=== PATIENT | male | born 1970 | race Caucasian/White ===

== ENCOUNTER 2019-01-28 20:53 | Inpatient (IN) ==
[2019-01-28 21:24] LABS: Bilirubin,Urine Negative (Negative); Blood,Urine Negative (Negative); Clarity,Urine Clear (Clear); Color,Urine Yellow (Yellow); Glucose,Urine (UA) Normal (Normal); Ketones,Urine Negative (Negative); Leukocyte Esterase,Urine Negative (Negative); Nitrite,Urine Negative (Negative); Protein,Urine Negative (Neg-Trace); Specific Gravity,Urine 1.021 (1.010-1.025); Urobilinogen,Urine Normal (Normal)
[2019-01-28] MEDS ORDERED: 0.9 % Sodium Chloride 1,000 ML IVC ONE (22:22)
--- NOTE | 2019-01-28 22:27 | Emergency Department Note ---
Disposition Clinical Impression: Cellulitis of perineum, Tachycardia Abscess of skin or subcutaneous tissue Qualifiers: Site of cutaneous abscess: trunk Site of cutaneous abscess of trunk: perineum Qualified Code(s): L02.215 - Cutaneous abscess of perineum Fever Qualifiers: Fever type: unspecified Qualified Code(s): R50.9 - Fever, unspecified Disposition: Admitted As Inpatient Condition: Fair Referrals: Madelaine Cohen CNP [Primary Care Provider] - Forms: ED Satisfaction Letter Time of Disposition: 01:54 General Adult HPI - General Chief complaint: ED Skin/Abscess/Foreign Body Stated complaint: Abscess Time Seen by Provider: 01/28/19 21:55 Source: patient Mode of arrival: private vehicle Limitations: no limitations Nursing Notes Reviewed: Yes Vital Signs Reviewed: Yes - History of Present Illness HPI Narrative: Patient is a 48-year-old male with no past medical history the takes no medications who reports that he noticed a lump near his anus on Monday which she believed was a hemorrhoid, he went to a medical facility where they prescri bed Keflex and Bactrim. Patient states that over the last several days that his pain has gotten worse, the swelling has increased, he has developed fevers, and he feels that his infection may be getting worse. Patient states that in the past he has had a history of MRSA. Patient states that when this happened previously he had to be placed on a much higher dose of antibiotics. Patient denies diabetes, known injury to the area, or any trauma. Patient is tachycardic on initial exam, and feels warm to the touch although bedside oral thermometer showed a temperature of 99.1. Pain Scale: 8 - Related Data Previous Rx's Medication Instructions Recorded Sulfamethoxazole/Trimeth DS 1 each PO BID #14 tablet 01/27/19 [Bactrim DS] cephALEXin [Keflex] 500 mg PO TID #21 capsule 01/27/19 Allergies Allergy/AdvReac Type Severity Reaction Status Date / Time No Known Allergies Allergy Verified 01/28/19 20:56 Constitutional: Reports: fever, chills Eyes: Denies: eye pain ENT ED: Denies: ear pain Cardiovascular: Denies: chest pain, palpitations Respiratory: Reports: cough (chronic, smoker) Gastrointestinal: Denies: abdominal pain, nausea, vomiting, diarrhea, constipation Genitourinary: Denies: urgency, dysuria Musculoskeletal: Denies: back pain Integumentary: Reports: other (abscess/lump in groin) Neurological: Denies: headache, weakness Psychiatric: Denies: anxiety, depression Endocrine: Denies: fatigue Hematological/Lymphatic: Denies: easy bleeding Allergic/Immunologic: Denies: facial swelling Past Medical History - Past Medical History Medical history: Reports: non-contributory Surgical history: Reports: other Psychiatric history: Reports: no psych history - Social History Smoking Status: Current every day smoker Smokeless Tobacco Status: No Alcohol use: Reports: none Drug use: Reports: none Physical Exam General: A&O x 3. No acute distress. Well developed, well nourished. Head: atraumatic, normocephalic. ENT: No conjunctival injection, no scleral icterus. PERRLA. EOMI. Oropharynx non- erythematous. mucous membranes moist. Neuro: No focal deficits, no speech deficit, no facial droop, mentating well. Pulm: Lungs CTAB A/P. No wheezes, rales, ronchi. Cardio: tachycardic no m/r/g. Chest not tender to palpation. Abd: Soft, non-distended. Normoactive bowel sounds. Non-tender to palpation. No guarding. Non rigid. Extremities: Radial pulses 2+ jesus, dorsalis pedis/posterior tibialis 2+ jesus. No LE edema. No cyanosis, clubbing. Skin: warmer than normal, dry, intact. No rashes. : scrotum appears swollen, erythematous, and is very tender to touch on left side. There is a small mass running in the pereneum along the left side of the pereneum that is erythematous and tender to touch. Psych: Appropriate mood and affect. Answers questions appropriately. Cooperative with exam. - General Limitations: no limitations General appearance: alert Course Course Narrative: Concern for scrotal abscess, or extension into deeper soft tissues. Will obtain ultrasound, cbc, bmp, lactic, UA, blood cultures. 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 1cm focus of fluid. Contacted Dr. Reid with urology who agreed to come in and see the patient. Pts last meal was 1899 night. Time: 00:47 Vital Signs Temperature 99 F 03/25/19 20:56 Pulse Rate 119 01/28/19 20:56 Respiratory Rate 16 01/28/19 20:56 Blood Pressure 120/77 01/28/19 20:56 O2 Sat by Pulse Oximetry 100 01/28/19 20:56 Temperature 101.1 F H 01/29/19 00:52 Pulse Rate 112 01/29/19 00:00 Respiratory Rate 20 01/29/19 00:00 Blood Pressure 118/76 01/29/19 00:00 O2 Sat by Pulse Oximetry 98 01/29/19 00:00 Oxygen Delivery Oxygen Delivery Room Air Medical Decision Making - MDM Narrative Medical decision making narrative: CT scan was concerning for inflammation with gas in the perienum tracking into the left hemiscrotum. Pt was evaluated at bedside by Dr Reid in urology who will take the patient to the OR for an I&D. Urology was not concerned for fourneire's gangrene, but consulted surgery and will have them see the patient tomorrow at bedside. Pt was given vancomycin, zosyn, and clindamycin while in the department. He was given a tylenol when he developed of fever of 101.1. His pain was managed with fentanyl and dilaudid. He remained tachycardic while in the department but otherwise hemodynamically stable. Plan of treatment was explained to the patient and he verbalized understanding and agreement with the plan. Pt was admitted to hospitalist, Dr. Cabello, who agreed to accept the patient to his service. - Medical Records Medical records reviewed: Yes I reviewed the patient's medical records. - Lab Data Lab results reviewed: Yes I reviewed the patient's lab results. Result diagrams: 01/28/19 22:46 01/28/19 22:46 Lab Results 01/28/19 01/28/19 01/28/19 Range/Units 21:02 22:46 22:46 WBC 20.1 H (4.3-11.1) K/mcL RBC 4.25 (4.19-5.50) M/mcL Hgb 14.4 (12.9-16.9) g/dL Hct 42.9 (37.5-50.1) % MCV 100.9 H (83.0-100.0) fL MCH 33.9 H (28.0-33.3) pg MCHC 33.6 (31.6-35.5) g/dL RDW 12.3 (11.5-14.5) % Plt Count 196 (140-400) K/mcL MPV 10.2 (9.4-12.4) fL Immature Gran % 0.7 (0-4) % Seg Neutrophils % 89.6 % Lymphocytes % 5.1 % Monocytes % 4.2 % Eosinophils % 0.2 % Basophils % 0.2 % Neutrophils # 18.0 H (1.6-8.9) K/mcL Lymphocytes # 1.0 (0.6-4.6) K/mcL Monocytes # 0.8 (0.0-1.3) K/mcL Eosinophils # 0.0 (0.0-0.6) K/mcL Basophils # 0.0 (0.0-0.2) K/mcL Sodium 135 L (136-145) mEq/L Potassium 3.5 (3.5-5.1) mEq/L Chloride 104 (98-107) mEq/L Carbon Dioxide 21 L (23-29) mEq/L BUN 13 (6-20) mg/dL Creatinine 0.75 (0.70-1.30) mg/dL Est GFR ( Amer) > 60 (> 60) Est GFR (Non-Af Amer) > 60 (> 60) BUN/Creatinine Ratio 17 (6-26) Glucose 89 (70-105) mg/dL Calculated Osmolality 280 (280-300) Lactic Acid (0.5-2.2) mmol/L Calcium 9.4 (8.6-10.3) mg/dL Urine Color Yellow (Yellow) Urine Clarity Clear (Clear) Urine pH 7.0 (5.0-8.0) pH Units Ur Specific [place] 1.021 (1.010-1.025) Urine Protein Negative (Neg-Trace) mg/dL Urine Glucose (UA) Normal (Normal) mg/dL Urine Ketones Negative (Negative) mg/dL Urine Blood Negative (Negative) Urine Nitrite Negative (Negative) Urine Bilirubin Negative (Negative) Urine Urobilinogen Normal (Normal) mg/dL Ur Leukocyte Esterase Negative (Negative) Ur Culture Indicated? NO (NO) 01/28/19 Range/Units 22:46 WBC (4.3-11.1) K/mcL RBC (4.19-5.50) M/mcL Hgb (12.9-16.9) g/dL Hct (37.5-50.1) % MCV (83.0-100.0) fL MCH (28.0-33.3) pg MCHC (31.6-35.5) g/dL RDW (11.5-14.5) % Plt Count (140-400) K/mcL MPV (9.4-12.4) fL Immature Gran % (0-4) % Seg Neutrophils % % Lymphocytes % % Monocytes % % Eosinophils % % Basophils % % Neutrophils # (1.6-8.9) K/mcL Lymphocytes # (0.6-4.6) K/mcL Monocytes # (0.0-1.3) K/mcL Eosinophils # (0.0-0.6) K/mcL Basophils # (0.0-0.2) K/mcL Sodium (136-145) mEq/L Potassium (3.5-5.1) mEq/L Chloride (98-107) mEq/L Carbon Dioxide (23-29) mEq/L BUN (6-20) mg/dL Creatinine (0.70-1.30) mg/dL Est GFR ( Amer) (> 60) Est GFR (Non-Af Amer) (> 60) BUN/Creatinine Ratio (6-26) Glucose (70-105) mg/dL Calculated Osmolality (280-300) Lactic Acid 1.0 (0.5-2.2) mmol/L Calcium (8.6-10.3) mg/dL Urine Color (Yellow) Urine Clarity (Clear) Urine pH (5.0-8.0) pH Units Ur Specific [place] (1.010-1.025) Urine Protein (Neg-Trace) mg/dL Urine Glucose (UA) (Normal) mg/dL Urine Ketones (Negative) mg/dL Urine Blood (Negative) Urine Nitrite (Negative) Urine Bilirubin (Negative) Urine Urobilinogen (Normal) mg/dL Ur Leukocyte Esterase (Negative) Ur Culture Indicated? (NO) - Radiology Data Radiology results reviewed: Yes I reviewed the patient's radiology results. Scrotum Ultrasound 01/28/19 22:15 IMPRESSION: 1. Scrotal cellulitis with no evidence for abscess formation. 2. Normal flow in both testicles. 3. Left-sided epididymitis. D/ / Manav Levin MD / Manav Levin MD Interpreting Provider: Manav Levin MD Abdomen/Pelvis CT 01/29/19 00:01 IMPRESSION: Edema throughout the subcutaneous tissues the scrotum with associated increased vascularity. There is also soft tissue gas within the lower left scrotal sac extending superiorly into the left perineal subcutaneous tissues compatible with Parag gangrene. Findings were discussed with Dr. Abdulkadir Bridges at 12:45 am on 01/29/2019. D/ / Shannan Modi Cha, MD / Shannan Modi Cha, MD Interpreting Provider: Shannan Modi Cha, MD
[2019-01-28 22:56] LABS: Basophils % 0.2 %; Eosinophils % 0.2 %; Hematocrit 42.9 % (37.5-50.1); Hemoglobin 14.4 g/dL (12.9-16.9); Immature Granulocytes % 0.7 % (0-4); Lymphocytes % 5.1 %; Mean Corpuscular HGB Conc 33.6 g/dL (31.6-35.5); Mean Corpuscular Hemoglobin 33.9 pg (28.0-33.3); Mean Corpuscular Volume 100.9 fL (83.0-100.0); Mean Platelet Volume 10.2 fL (9.4-12.4); Monocytes # 0.8 K/mcL (0.0-1.3); Monocytes % 4.2 %; Platelet Count 196 K/mcL (140-400); Red Blood Count 4.25 M/mcL (4.19-5.50); Red Cell Distribution Width 12.3 % (11.5-14.5); Segmented Neutrophils % 89.6 %
[2019-01-28 23:19] LABS: BUN/Creatinine Ratio 17 (6-26); Blood Urea Nitrogen 13 mg/dL (6-20); Calcium 9.4 mg/dL (8.6-10.3); Carbon Dioxide 21 mEq/L (23-29); Chloride 104 mEq/L (98-107); Glucose 89 mg/dL (70-105); Osmolality,Calculated 280 (280-300); Potassium 3.5 mEq/L (3.5-5.1); Sodium 135 mEq/L (136-145); eGFR For Non-African Americans > 60 (> 60)
[2019-01-28] MEDS ORDERED: Isovue-370 500 ML BOTTLE IVP ONE (23:42)
[2019-01-28] MEDS ORDERED: Piperacillin/Tazobactam 3.375 GM in 0.9 % Sodium Chloride Mini Bag 100 ML IVPB ONE (23:49)
[2019-01-28] MEDS ORDERED: Clindamycin 600 MG/50 ML 600 MG/50 ML IV.SOLN IVPB STA (23:49)
[2019-01-29] MEDS ORDERED: *HR* FentaNYL (PF) 100 MCG/2 ML VIAL IVP ONE (00:03)
[2019-01-29] MEDS ORDERED: *HR* HYDROmorphone (PF) 1 MG/ML SYRINGE IVP ONE (01:26)
[2019-01-29] MEDS ORDERED: *HR* Midazolam HCl 2 MG/2 ML VIAL ONE (01:32)
[2019-01-29] MEDS ORDERED: *HR* FentaNYL (PF) 100 MCG/2 ML VIAL ONE (01:32)
[2019-01-29] MEDS ORDERED: *HR* Propofol 200 MG/20 ML VIAL IVP ONE ×2 (01:32→02:39)
[2019-01-29] MEDS ORDERED: *HR* Succinylcholine 200 MG/10 ML VIAL IVP ONE (01:36)
[2019-01-29] MEDS ORDERED: Lidocaine -MPF 2% 2 ML VIAL ONE (01:36)
[2019-01-29] MEDS ORDERED: Ondansetron 4 MG/2 ML VIAL ONE (01:38)
[2019-01-29] MEDS ORDERED: Dexamethasone 4 MG/ML VIAL ONE (01:38)
[2019-01-29] MEDS ORDERED: Lidocaine 1% 20 ML MDV ONE (01:51)
--- NOTE | 2019-01-29 01:53 | Anesthesia Evaluation PreOp ---
Date of Encounter: 01/29/19 Time of Encounter: 02:10 - Past History Planned Operation: I&D scrotal abscess, poss debridement Cardiac History: Denies any Significant Hx Pulmonary History: Smoker [employer] History: Denies Any Significant HX Other Medical History: GERD Anesthesia History: No Prior Anesthetic Complications, Past Anesthesia (Right shoulder) Alcohol Use: none Drug use: none Medications and Allergies Sulfamethoxazole/Trimeth DS [Bactrim DS] 1 each PO BID #14 tablet 01/27/19 [Rx] cephALEXin [Keflex] 500 mg PO TID #21 capsule 01/27/19 [Rx] Allergy/AdvReac Type Severity Reaction Status Date / Time No Known Allergies Allergy Verified 01/28/19 20:56 - Meds/Allergy Pre-op Review Medications Reviewed: Yes Allergies Reviewed: Yes Beta Blockers on Current Med List: No Anesthesia Results - Labs 01/28/19 22:46 01/28/19 22:46 Anesthesia Exam Last Vital Signs Temp 101.1 F H 01/29/19 00:52 Pulse 112 01/29/19 00:00 Resp 20 01/29/19 00:00 BP 118/76 01/29/19 00:00 Pulse Ox 98 01/29/19 00:00 Weight: 89 kg NPO (# of Hours): since 01-28-19 at 19:00 - HEENT Pupil (Motor): Pupils equal, EOMI Mallampati: II Teeth: Normal Oral Opening: Greater than 3 - [employer] LOC: Oriented - Cardiac Rhythm: Regular Murmur: None - Pulmonary Breath Sounds: bilateral Clear Respiratory Effort: Symmetrical Anesthesia Assess/Plan ASA Score: 2, E Level of consciousness: Cooperative Anesthetic Plan: General, Precautions (RSI) Monitoring Plan: Standard Monitors Recovery Plan: PACU
--- NOTE | 2019-01-29 01:54 | Urology - Consult Note ---
Date of Encounter: 01/29/19 Time of Encounter: 01:52 - Assessment and Plan (1) Abscess, perineum Current Visit: Yes Status: Acute Assessment and plan: 48-year-old man with a history of a perineal abscess was seen in consultation. On exam I do not see any evidence of gangrene to the skin. I recommend proceeding with an incision and drainage of scrotal versus perineal abscess and possible debridement of Parag's gangrene if notable. We reviewed the risks of the surgery which include but are not limited to bleeding, infection, injury or structures, need for further procedures, incomplete treatment, and the risk of anesthesia. He is willing to proceed. He has received IV antibiotics already. The surgery team has been notified. I did contact general surgery over the phone. The general surgeon was not physically in the hospital at this time. Given that he has a fever and elevated white count I will proceed with surgery. (2) Cellulitis of perineum Current Visit: No Status: Acute Urology CN:HPI Consult date: 01/29/19 Reason for consult Urology: Other (scrotal/perineum abscess) History of present illness: 48-year-old man presents with concern for perineal swelling and erythema over the last 3-4 days. On January 26 he went to a local urgent care. He noted approximately golf ball size swelling in his perineum extending to his anterior gluteal cleft. He was given antibiotics orally. The pain worsened. He presented to the emergency room today with more pain and drainage from the area of swelling. He had a CT scan which showed concern for an abscess in the perineum versus scrotum with subcutaneous gas. He developed a fever as well. Urology was counseled for further evaluation. He denies any history of diabetes mellitus. He is not on any immunosuppressive medication. He reports that he is otherwise healthy. Past Med Surg Social Fam HX - Past Medical History Medical history: no medical history, non-contributory Psychiatric history: no psych history - Past Surgical History Surgical History: other Additional surgical history: lt knee scope - Social History Smoking Status: Current every day smoker Smokeless Tobacco Status: No Alcohol use: none Drug use: none Additional social history: He works at [employer]. - Family History Brother Hx Family Genitourinary Disorders: Yes (Kidney stones) Medications and Allergies Sulfamethoxazole/Trimeth DS [Bactrim DS] 1 each PO BID #14 tablet 01/27/19 [Rx] cephALEXin [Keflex] 500 mg PO TID #21 capsule 01/27/19 [Rx] Allergy/AdvReac Type Severity Reaction Status Date / Time No Known Allergies Allergy Verified 01/28/19 20:56 Review of Systems - Constitutional fever(s), no chills - EENT Nose, mouth and throat: no dizziness - Cardiovascular no chest pain - Respiratory no dyspnea - Gastrointestinal no nausea, no vomiting - Genitourinary genital pain, no flank pain, no hematuria - Musculoskeletal no back pain - Integumentary no erythema, no rash - Neurological no weakness - Psychiatric no suicidal ideation - Hematologic/Lymphatic no easy bleeding - Allergic/Immunologic no wheezing Exam Initial Vital Signs Temp Pulse Resp BP Pulse Ox 99 F 119 16 120/77 100 01/28/19 20:56 01/28/19 20:56 01/28/19 20:56 01/28/19 20:56 01/28/19 20:56 - General physical appearance Present: well developed, well nourished, no distress - Eyes Absent: icteric - ENT Present: normal nares - Neck Present: trachea midline - Respiratory Present: normal respiratory effort - Cardiovascular Cardiovascular exam IM: RRR - Abdomen Abdomen: Present: soft, non tender - Genitourinary normal penis with no external lesions, other (Scrotum is erythematous and edematous. Penis is circumcised and is normal. Testicles are normal.) - Rectum Rectum: Present: other (In the perineum just anterior to the gluteal cleft I can see evidence of an open abscess draining purulent fluid. There is no evidence of gangrene to the scrotum or perineum.) - Integumentary Present: other (Abscess noted) - Neurologic Present: normal coordination - Musculoskeletal Present: other (grossly normal) Urology Results - Labs 01/28/19 22:46 01/28/19 22:46 Abnormal lab results WBC 20.1 K/mcL (4.3-11.1) H 01/28/19 22:46 MCV 100.9 fL (83.0-100.0) H 01/28/19 22:46 MCH 33.9 pg (28.0-33.3) H 01/28/19 22:46 Neutrophils # 18.0 K/mcL (1.6-8.9) H 01/28/19 22:46 Sodium 135 mEq/L (136-145) L 01/28/19 22:46 Carbon Dioxide 21 mEq/L (23-29) L 01/28/19 22:46 Diabetes panel 01/28/19 Range/Units 22:46 Sodium 135 L (136-145) mEq/L Potassium 3.5 (3.5-5.1) mEq/L Chloride 104 (98-107) mEq/L Carbon Dioxide 21 L (23-29) mEq/L BUN 13 (6-20) mg/dL Creatinine 0.75 (0.70-1.30) mg/dL Glucose 89 (70-105) mg/dL Calcium 9.4 (8.6-10.3) mg/dL Calcium panel 01/28/19 Range/Units 22:46 Calcium 9.4 (8.6-10.3) mg/dL Pituitary panel 01/28/19 Range/Units 22:46 Sodium 135 L (136-145) mEq/L Potassium 3.5 (3.5-5.1) mEq/L Chloride 104 (98-107) mEq/L Carbon Dioxide 21 L (23-29) mEq/L BUN 13 (6-20) mg/dL Creatinine 0.75 (0.70-1.30) mg/dL Glucose 89 (70-105) mg/dL Calcium 9.4 (8.6-10.3) mg/dL Adrenal panel 01/28/19 Range/Units 22:46 Sodium 135 L (136-145) mEq/L Potassium 3.5 (3.5-5.1) mEq/L Chloride 104 (98-107) mEq/L Carbon Dioxide 21 L (23-29) mEq/L BUN 13 (6-20) mg/dL Creatinine 0.75 (0.70-1.30) mg/dL Glucose 89 (70-105) mg/dL Calcium 9.4 (8.6-10.3) mg/dL All other labs normal. - Imaging CT scan - abdomen: report reviewed, image reviewed CT scan - pelvis: report reviewed, image reviewed Consult Discharge Plan - Plan Referrals: Madelaine Cohen, [employer] [Primary Care Provider] -
[2019-01-29] MEDS ORDERED: *HR* Promethazine 25 MG/ML VIAL IVP PRN (01:55)
[2019-01-29] MEDS ORDERED: *HR* OxyCODONE Immed Rel 5 MG TABLET PO PRN (01:55)
[2019-01-29] MEDS ORDERED: Albuterol 2.5 MG/3 ML NEBULIZER ONE (02:05)
[2019-01-29] MEDS ORDERED: Albuterol 2.5 MG/3 ML NEBULIZER IH ONE (02:08)
--- NOTE | 2019-01-29 02:26 | Emergency Department Note ---
Disposition Clinical Impression: Abscess of skin or subcutaneous tissue, Cellulitis of perineum, Fever, Tachycardia Disposition: Admitted As Inpatient Condition: Fair Referrals: Madelaine Cohen CNP [Primary Care Provider] - Forms: ED Satisfaction Letter General Adult HPI - General Chief complaint: ED Skin/Abscess/Foreign Body Stated complaint: Abscess Time Seen by Provider: 01/28/19 21:55 Source: patient Mode of arrival: private vehicle Limitations: no limitations Nursing Notes Reviewed: Yes Vital Signs Reviewed: Yes - History of Present Illness Pain Scale: 6 - Related Data Previous Rx's Medication Instructions Recorded Sulfamethoxazole/Trimeth DS 1 each PO BID #14 tablet 01/27/19 [Bactrim DS] cephALEXin [Keflex] 500 mg PO TID #21 capsule 01/27/19 Allergies Allergy/AdvReac Type Severity Reaction Status Date / Time No Known Allergies Allergy Verified 01/28/19 20:56 Constitutional: Reports: fever, chills Eyes: Denies: eye pain ENT ED: Denies: ear pain Cardiovascular: Denies: chest pain, palpitations Respiratory: Reports: cough (chronic, smoker) Gastrointestinal: Denies: abdominal pain, nausea, vomiting, diarrhea, constipation Genitourinary: Denies: urgency, dysuria Musculoskeletal: Denies: back pain Integumentary: Reports: other (abscess/lump in groin) Neurological: Denies: headache, weakness Psychiatric: Denies: anxiety, depression Endocrine: Denies: fatigue Hematological/Lymphatic: Denies: easy bleeding Allergic/Immunologic: Denies: facial swelling Past Medical History - Past Medical History Medical history: Reports: no medical history, non-contributory Surgical history: Reports: other Psychiatric history: Reports: no psych history - Social History Smoking Status: Current every day smoker Smokeless Tobacco Status: No Alcohol use: Reports: none Drug use: Reports: none Physical Exam - General Limitations: no limitations General appearance: alert Course Vital Signs Temperature 99 F 01/28/19 20:56 Pulse Rate 119 01/28/19 20:56 Respiratory Rate 16 01/28/19 20:56 Blood Pressure 120/77 01/28/19 20:56 O2 Sat by Pulse Oximetry 100 01/28/19 20:56 Temperature 99.3 F 01/29/19 01:56 Pulse Rate 115 01/29/19 01:56 Respiratory Rate 20 01/29/19 01:56 Blood Pressure 112/71 01/29/19 01:56 O2 Sat by Pulse Oximetry 98 01/29/19 01:56 Oxygen Delivery Oxygen Delivery Room Air Medical Decision Making - Medical Records Medical records reviewed: Yes I reviewed the patient's medical records. - Lab Data Lab results reviewed: Yes I reviewed the patient's lab results. Result diagrams: 01/28/19 22:46 01/28/19 22:46 Lab Results 01/28/19 01/28/19 01/28/19 Range/Units 21:02 22:46 22:46 WBC 20.1 H (4.3-11.1) K/mcL RBC 4.25 (4.19-5.50) M/mcL Hgb 14.4 (12.9-16.9) g/dL Hct 42.9 (37.5-50.1) % MCV 100.9 H (83.0-100.0) fL MCH 33.9 H (28.0-33.3) pg MCHC 33.6 (31.6-35.5) g/dL RDW 12.3 (11.5-14.5) % Plt Count 196 (140-400) K/mcL MPV 10.2 (9.4-12.4) fL Immature Gran % 0.7 (0-4) % Seg Neutrophils % 89.6 % Lymphocytes % 5.1 % Monocytes % 4.2 % Eosinophils % 0.2 % Basophils % 0.2 % Neutrophils # 18.0 H (1.6-8.9) K/mcL Lymphocytes # 1.0 (0.6-4.6) K/mcL Monocytes # 0.8 (0.0-1.3) K/mcL Eosinophils # 0.0 (0.0-0.6) K/mcL Basophils # 0.0 (0.0-0.2) K/mcL Sodium 135 L (136-145) mEq/L Potassium 3.5 (3.5-5.1) mEq/L Chloride 104 (98-107) mEq/L Carbon Dioxide 21 L (23-29) mEq/L BUN 13 (6-20) mg/dL Creatinine 0.75 (0.70-1.30) mg/dL Est GFR ( Amer) > 60 (> 60) Est GFR (Non-Af Amer) > 60 (> 60) BUN/Creatinine Ratio 17 (6-26) Glucose 89 (70-105) mg/dL Calculated Osmolality 280 (280-300) Lactic Acid (0.5-2.2) mmol/L Calcium 9.4 (8.6-10.3) mg/dL Urine Color Yellow (Yellow) Urine Clarity Clear (Clear) Urine pH 7.0 (5.0-8.0) pH Units Ur Specific [place] 1.021 (1.010-1.025) Urine Protein Negative (Neg-Trace) mg/dL Urine Glucose (UA) Normal (Normal) mg/dL Urine Ketones Negative (Negative) mg/dL Urine Blood Negative (Negative) Urine Nitrite Negative (Negative) Urine Bilirubin Negative (Negative) Urine Urobilinogen Normal (Normal) mg/dL Ur Leukocyte Esterase Negative (Negative) Ur Culture Indicated? NO (NO) 01/28/19 Range/Units 22:46 WBC (4.3-11.1) K/mcL RBC (4.19-5.50) M/mcL Hgb (12.9-16.9) g/dL Hct (37.5-50.1) % MCV (83.0-100.0) fL MCH (28.0-33.3) pg MCHC (31.6-35.5) g/dL RDW (11.5-14.5) % Plt Count (140-400) K/mcL MPV (9.4-12.4) fL Immature Gran % (0-4) % Seg Neutrophils % % Lymphocytes % % Monocytes % % Eosinophils % % Basophils % % Neutrophils # (1.6-8.9) K/mcL Lymphocytes # (0.6-4.6) K/mcL Monocytes # (0.0-1.3) K/mcL Eosinophils # (0.0-0.6) K/mcL Basophils # (0.0-0.2) K/mcL Sodium (136-145) mEq/L Potassium (3.5-5.1) mEq/L Chloride (98-107) mEq/L Carbon Dioxide (23-29) mEq/L BUN (6-20) mg/dL Creatinine (0.70-1.30) mg/dL Est GFR ( Amer) (> 60) Est GFR (Non-Af Amer) (> 60) BUN/Creatinine Ratio (6-26) Glucose (70-105) mg/dL Calculated Osmolality (280-300) Lactic Acid 1.0 (0.5-2.2) mmol/L Calcium (8.6-10.3) mg/dL Urine Color (Yellow) Urine Clarity (Clear) Urine pH (5.0-8.0) pH Units Ur Specific [place] (1.010-1.025) Urine Protein (Neg-Trace) mg/dL Urine Glucose (UA) (Normal) mg/dL Urine Ketones (Negative) mg/dL Urine Blood (Negative) Urine Nitrite (Negative) Urine Bilirubin (Negative) Urine Urobilinogen (Normal) mg/dL Ur Leukocyte Esterase (Negative) Ur Culture Indicated? (NO) - Radiology Data Radiology results reviewed: Yes I reviewed the patient's radiology results. Scrotum Ultrasound 01/28/19 22:15 IMPRESSION: 1. Scrotal cellulitis with no evidence for abscess formation. 2. Normal flow in both testicles. 3. Left-sided epididymitis. D/ / Manav Levin MD / Manav Levin MD Interpreting Provider: Manav Levin MD Abdomen/Pelvis CT 01/29/19 00:01 IMPRESSION: Edema throughout the subcutaneous tissues the scrotum with associated increased vascularity. There is also soft tissue gas within the lower left scrotal sac extending superiorly into the left perineal subcutaneous tissues compatible with Parag gangrene. Findings were discussed with Dr. Abdulkadir Bridges at 12:45 am on 01/29/2019. D/ / Shannan Modi Cha, MD / Shannan Modi Cha, MD Interpreting Provider: Shannan Modi Cha, MD Critical Care Time Critical Care Time: Yes Total Critical Care Time: 45 Attestation: Critical care performed: Time is exclusive of separately billable procedures. Time includes: direct patient care, patient reassessment, coordination of patient care, interpretation of data (laboratory data, radiology data, and respiratory data), review of patient's medical records, medical consultation and documentation of patient ca re. Procedures included in critical care time: Procedures excluded from critical care time: Attestation Statement - Attestation Attestation: I, Javier Roy MD, personally evaluated this patient and discussed their management with the resident physician. I reviewed the resident's note and agree with the documented findings, medical decision making, and plan of care. 48-year-old male presents to the emergency department with a complaint of pain and swelling to the left perineal and scrotal area which started 2 days prior to arrival. He was seen at urgent care and started on Bactrim and Keflex ye . He has had 3 doses. He presents to the emergency department tonight because of increased pain and swelling. Some chills and subjective fever. No generalized abdominal pain. No dysuria. On examination patient is a well-developed well-nourished male in no acute distress. He is alert and oriented 3. There is no cyanosis or diaphoresis. Breath sounds are clear and equal bilaterally. Heart regular with a mild tachycardia. Abdomen soft and nontender with normal bowel sounds. Angy tourinary exam there is diffuse edema and erythema of the entire scrotum with edema and induration of the left side of the perineum between the anus and the scrotum. Labs reviewed. Blood cultures obtained. Scrotal ultrasound showed cellulitis with no evidence of abscess. CT was obtained and showed gas in the lower portion of the scrotum extending down into the perineum consistent with Parag 's gangrene. Patient started on IV vancomycin, Zosyn, and clindamycin. The urologist, Dr. Reid, was consulted and saw the patient in the emergency department. He does not feel that it is actually Parag's gangrene and feels more that it is just a perineal or perianal abscess. He did take the patient to the operating room for incision and drainage. The hospitalist, Dr. Cabello, was consulted and accepted admission of the patient.
[2019-01-29] MEDS ORDERED: *HR* PHENYLEPHRINE 1,000 MCG/10 ML SYRINGE IVP ONE (02:34)
[2019-01-29] MEDS ORDERED: Ketorolac 30 MG/ML VIAL ONE (02:45)
[2019-01-29] MEDS ORDERED: Naloxone 0.4 MG/ML INJ IVP PRN ×2 (03:06→05:00)
[2019-01-29] MEDS ORDERED: Ondansetron 4 MG/2 ML VIAL IVP PRN ×2 (03:06→05:00)
[2019-01-29] MEDS ORDERED: Acetaminophen 325 MG TABLET PO PRN ×2 (03:06→05:00)
[2019-01-29] MEDS ORDERED: OXYCODONE Oral CONC 10 MG/0.5 ML ORAL.SYG SL PRN (03:06)
[2019-01-29] MEDS ORDERED: *HR* OxyCODONE/APAP 5/325 TABLET PO PRN ×2 (03:06→05:00)
[2019-01-29] MEDS ORDERED: Ketorolac 30 MG/ML VIAL IVP PRN ×3 (03:06→14:11)
--- NOTE | 2019-01-29 03:06 | Operative Note ---
Date of procedure: 01/29/19 Pre-op diagnosis: Scrotal abscess Post-op diagnosis: same Procedure: Incision and drainage of scrotal abscess Implants: Packing Complications: None Anesthesia: GETA Surgeon: Bienvenido Reid Was there an assistant fitness manager present: No Estimated blood loss (cc): 5 Specimen: wound cultures Condition: stable Disposition: PACU Procedure in Detail: Indications: Mr. Tafoya is a 48-year-old gentleman who has a history of scrotal cellulitis. He developed purulent drainage from his perineum today. A CT scan showed gas underneath the skin. There is purulent fluid emanating out of the perineum to the anal verge. He elected to undergo a incision and drainage of scrotal abscess with possible resection of Parag's gangrene. He is aware of the risks of the procedure including but not limited to bleeding, infection, injury to other structures, loss of testicle, need for further procedures, and the risk of anesthesia. He is willing to proceed. Procedure in detail: After informed consent was obtained Mr. Tafoya was brought back to the operating room and placed in the supine position. A timeout was performed. General anesthesia was then administered and an endotracheal tube was placed. He was then placed in the lithotomy position. His genitalia were prepped and draped in the usual sterile fashion. A 2 cm incision was made over top of the sinus draining purulent fluid just anterior and to the left of the anal verge. Purulent fluid emanated out. A sample of this was sent for culture. My finger was placed superior into the wound which tracked into the left hemiscrotal wall. More purulent fluid drained out of the wound. I irrigated the wound. I made a new incision over top of the left hemiscrotum over top of my finger. This was opened using the hemostat. I then placed a quarter inch packing strip into the wound from the scrotum. The wound of the anus was packed as well. I felt that it would be difficult for the patient to do wound packing near his anus and that would be easier to pack from the scrotum on down. Local anesthetic was infiltrated in the wound. Dry sterile dressings were applied. We placed mesh panties over top the patient. The patient was then awakened from general anesthesia and brought to the recovery room in good condition. All sponge, needle, and instrument counts were correct.
[2019-01-29] MEDS ORDERED: 0.9 % Sodium Chloride 1,000 ML IVC SCH (03:15)
--- NOTE | 2019-01-29 03:46 | Anesthesia Evaluation Post Op ---
Date of Encounter: 01/29/19 Time of Encounter: 03:45 - Vital Signs Vital Signs: Last Vital Signs Temp 99.3 F 01/29/19 03:32 Pulse 108 01/29/19 03:32 Resp 14 01/29/19 03:32 BP 97/59 01/29/19 03:32 Pulse Ox 95 01/29/19 03:32 - Lungs Lungs: Clear Ascult./Percussion - Airway Airway: Non-obstructed - Cardiovascular Regular Rate - Mental Status Mental Status: Alert & Oriented, Answers Appropriately - Pain Pain Scale: 1 - Nausea Vomiting Nausea Vomiting: Not Present - Hydration Hydration: Ice chips - Discharge PostOp Status: Transfer Patient to floor
--- NOTE | 2019-01-29 04:38 | Internal Med History&Physical ---
<Jaylene Browne Abdulkadir - Last Filed: 01/29/19 06:06> Date of Encounter: 01/29/19 Time of Encounter: 05:03 Internal Medicine - H&P: HPI Chief complaint: lump near anus Admitted From: Home History of present illness: Mr. Tafoya is a 48 year old male with reported past medical history of MRSA and no other medical conditions who presented to the [facility] ER from urgent care with suspected perineal abscess. Patient stated that he first noticed a small lump near his anus on Monday and thought that it was just his hemorrhoid. He treated it with preparation H, however it increased in size. The lump progressively enlarged and became more tender. He also experienced fever and chills, which led to him going to urgent care on Monday. He was prescribed Bactrim and Keflex, which he states he started taking that day. Monday morning his pain was much worse and he has had some drainage from the initial site. The lump had become significantly enlarged and had tracked up the left side of his perineum and was now compressing on his scrotum. He continued to have fever and chills and stated that it was red and very tender. He decided to go back to urgent care at which point he was sent to the ER for further evaluation. He admits to previous MRSA infection on the left inner thigh many years ago. He admits to using clippers for grooming and denies shaving. He denies any nausea, vomiting, diarrhea, or urinary symptoms. ER course: Febrile 100.1, tachycardic 119, WBC 20.1 Lactic acid 1.0 Vanc, Zosyn and clindamycin [address] f[address] abdomen/pelvismildly enlarged inguinal lymph nodes, diffuse edema within the subcutaneous tissue of the scrotum extending into the left perineum, gas within the soft tissues of the left scrotum extending superiorly into the left perineum compatible with for near gangrene Urology spoke with general surgery prior to taking patient to the OR. Due to fever and leukocytosis, urology decided to proceed with I&D Past Med Surg Social Fam HX - Past Medical History Medical history: no medical history, non-contributory Psychiatric history: no psych history - Past Surgical History Surgical History: other Additional surgical history: lt knee scope - Social History Smoking Status: Current every day smoker Smokeless Tobacco Status: No Alcohol use: none Drug use: none - Family History Brother Hx Family Genitourinary Disorders: Yes (Kidney stones) Internal Medicine - H&P: Meds Sulfamethoxazole/Trimeth DS [Bactrim DS] 1 each PO BID #14 tablet 01/27/19 [Rx] cephALEXin [Keflex] 500 mg PO TID #21 capsule 01/27/19 [Rx] Allergy/AdvReac Type Severity Reaction Status Date / Time No Known Allergies Allergy Verified 01/28/19 20:56 All Systems PM: A 10-system review of systems was performed and is negative for pertinent findings except as documented above in the HPI. - Constitutional Constitutional: chills, fever(s) - Cardiovascular Cardiovascular ROS IM: no chest pain, no diaphoresis, no dyspnea, no edema, no lightheadedness, no palpitations, no syncope - Respiratory Respiratory: no cough, no dyspnea - Gastrointestinal Gastrointestinal: no abdominal pain, no diarrhea, no nausea, no vomiting - Genitourinary Genitourinary ROS male: scrotal swelling, no difficulty urinating Additional comments: Large erythematous perineal lump - Musculoskeletal Musculoskeletal ROS IM: no numbness, no tingling - Integumentary Integumentary IM: erythema (Perineal), no rash - Neurological Neurological ROS: no confusion, no dizziness, no headache(s) - Psychiatric Psychiatric: no behavioral changes, no confusion - Constitutional Vitals: Temp Pulse Resp BP Pulse Ox 99.3 F 108 14 97/59 95 01/29/19 03:32 01/29/19 03:32 01/29/19 03:32 01/29/19 03:32 01/29/19 03:32 General appearance: Present: A&O X 3, no acute distress, answers questions appropriately Exam: see above - Head Head exam: Present: atraumatic, normocephalic - Eye Eye exam: Present: EOMI, conjuntiva pink, sclera anicteric - ENT ENT exam: Present: mucous membranes moist - Neck Neck exam general surgery: Present: trachea midline - Respiratory Respiratory exam: Present: CTAB. Absent: accessory muscle use, rales, rhonchi, wheezes - Cardiovascular Cardiovascular exam: Present: gallop, RRR, +S1, +S2. Absent: diastolic murmur, rubs, systolic murmur - GI/Abdominal GI/Abdominal exam: Present: normal bowel sounds, soft, no peritoneal signs. Absent: distended, tenderness - Additional comments: Perineal dressings intact - Extremities Exam Extremities exam: Present: warm, radial pulses palpable and symmetrical. Absent: pedal edema - Neurological Exam Neurological exam: Present: oriented X3, no focal deficits. Absent: pronater drift, facial droop, speech deficit - Psychiatric Psychiatric exam: Present: normal affect, normal mood - Skin Skin exam: Present: dry, intact, warm. Absent: diaphoretic Internal Med - H&P Results - Labs CBC & Chem 7: 01/28/19 22:46 01/28/19 22:46 Labs: Short CBC 01/28/19 Range/Units 22:46 WBC 20.1 H (4.3-11.1) K/mcL Hgb 14.4 (12.9-16.9) g/dL Hct 42.9 (37.5-50.1) % Plt Count 196 (140-400) K/mcL Neutrophils # 18.0 H (1.6-8.9) K/mcL BMP 01/28/19 22:46 Sodium 135 L Potassium 3.5 Chloride 104 Carbon Dioxide 21 L BUN 13 Creatinine 0.75 Glucose 89 Calcium 9.4 Urine 01/28/19 Range/Units 21:02 Urine Color Yellow (Yellow) Urine Clarity Clear (Clear) Urine pH 7.0 (5.0-8.0) pH Units Ur Specific [place] 1.021 (1.010-1.025) Urine Protein Negative (Neg-Trace) mg/dL Urine Glucose (UA) Normal (Normal) mg/dL - Impressions ITS Impressions Scrotum Ultrasound 01/28/19 22:15 IMPRESSION: 1. Scrotal cellulitis with no evidence for abscess formation. 2. Normal flow in both testicles. 3. Left-sided epididymitis. D/ / Manav Levin MD / Manav Levin MD Interpreting Provider: Manav Levin MD Abdomen/Pelvis CT 01/29/19 00:01 IMPRESSION: Edema throughout the subcutaneous tissues the scrotum with associated increased vascularity. There is also soft tissue gas within the lower left scrotal sac extending superiorly into the left perineal subcutaneous tissues compatible with Paarg gangrene. Findings were discussed with Dr. Abdulkadir Bridges at 12:45 am on 01/29/2019. D/ / Shannan Modi Cha, MD / Shannan Modi Cha, MD Interpreting Provider: Shannan Modi Cha, MD - Assessment and Plan (1) Sepsis Current Visit: Yes Status: Acute Assessment and plan: Febrile, Tachy, Leukocytosis, and perineal abscess on presentation Likely secondary to perineal abscess Lactic Acid 1.0 Received Vanc, Zosyn, and Clinda in ER s/p 1L IVF bolus UA negative Cultures pending s/p abscess I&D, Urology managing Continue Vanc and Zosyn, De-escalate abx based on cultures and sensitivities Continue IVFs Qualifiers: Sepsis type: sepsis due to unspecified organism Qualified Code(s): A41.9 - Sepsis, unspecified organism (2) Abscess, perineum Current Visit: Yes Status: Acute Assessment and plan: Patient admits to using clippers for grooming, has had previous MRSA infection of the inner thigh s/p I&D by Urology CT abd/pelvismildly enlarged inguinal lymph nodes, diffuse edema within the subcutaneous tissue of the scrotum extending into the left perineum, gas within the soft tissues of the left scrotum extending superiorly into the left perineum Wound cultures pending Incision managment per Urology, case was discussed with general surgery by Urology prior to I&D. Continue Vanc and Zosyn, de-escalated based on cultures and sensitivities Continue IVFs Continue pain management and supportive care (3) Cellulitis of perineum Current Visit: Yes Status: Acute Assessment and plan: Likely secondary to perineal abscess Plan as above (4) DVT prophylaxis Current Visit: Yes Status: Acute Assessment and plan: EPCDs d/t bleeding risk s/p I&D - Time Spent With Patient Total time spent is greater than 50% in coordination of care (as documented) at patient's floor/unit and/or counseling patient: 25 - 35 minutes <Renan Cabello - Last Filed: 01/29/19 06:46> Date of Encounter: 01/29/19 Internal Medicine - H&P: HPI History of present illness: Mr. Tafoya is a 48 year old male All Systems PM: A 10-system review of systems was performed and is negative for pertinent findings except as documented above in the HPI. - Constitutional Vitals: Temp Pulse Resp BP Pulse Ox 99.3 F 108 14 97/59 95 01/29/19 03:32 01/29/19 03:32 01/29/19 03:32 01/29/19 03:32 01/29/19 03:32 Internal Med - H&P Results - Labs CBC & Chem 7: 01/28/19 22:46 01/28/19 22:46 Labs: Short CBC 01/28/19 Range/Units 22:46 WBC 20.1 H (4.3-11.1) K/mcL Hgb 14.4 (12.9-16.9) g/dL Hct 42.9 (37.5-50.1) % Plt Count 196 (140-400) K/mcL Neutrophils # 18.0 H (1.6-8.9) K/mcL BMP 01/28/19 22:46 Sodium 135 L Potassium 3.5 Chloride 104 Carbon Dioxide 21 L BUN 13 Creatinine 0.75 Glucose 89 Calcium 9.4 Urine 01/28/19 Range/Units 21:02 Urine Color Yellow (Yellow) Urine Clarity Clear (Clear) Urine pH 7.0 (5.0-8.0) pH Units Ur Specific [place] 1.021 (1.010-1.025) Urine Protein Negative (Neg-Trace) mg/dL Urine Glucose (UA) Normal (Normal) mg/dL - Impressions ITS Impressions Scrotum Ultrasound 01/28/19 22:15 IMPRESSION: 1. Scrotal cellulitis with no evidence for abscess formation. 2. Normal flow in both testicles. 3. Left-sided epididymitis. D/ / Manav Levin MD / Manav Levin MD Interpreting Provider: Manav Levin MD Abdomen/Pelvis CT 01/29/19 00:01 IMPRESSION: Edema throughout the subcutaneous tissues the scrotum with associated increased vascularity. There is also soft tissue gas within the lower left scrotal sac extending superiorly into the left perineal subcutaneous tissues compatible with Parag gangrene. Findings were discussed with Dr. Abdulkadir Bridges at 12:45 am on 01/29/2019. D/ / Shannan Modi Cha, MD / Shannan Modi Cha, MD Interpreting Provider: Shannan Modi Cha, MD - Time Spent With Patient Total time spent is greater than 50% in coordination of care (as documented) at patient's floor/unit and/or counseling patient: - Attending Attestation I saw and evaluated the patient. I reviewed the residents note, performed my own physical examination and agree with findings and plan as documented in the residents note. Patient seen and examined on 01/29/19. Patient seen on medical floor after surgery. States that he is feeling better. Urology continuing to follow. We will continue antibiotics, monitor for worsening signs of infection. Discussed medical history with the patient, he states that he had no previous medical problems, does not take medications on a regular basis. He did have a heart cath 9 years ago, but no stents. His family medical history includes mainly heart attacks in his father and brother, both of which required bypass surgeries. His father also had diabetes. His mother had a heart attack as well. His sister is currently being treated for lymphoma and also had lung cancer.
[2019-01-29] MEDS: 0.9 % Sodium Chloride 1,000 ML IVC SCH ×2 (06:38→13:29)
[2019-01-29 06:52] LABS: Basophils % 0.2 %; Hematocrit 36.9 % (37.5-50.1); Immature Granulocytes % 4.5 % (0-4); Lymphocytes # 0.6 K/mcL (0.6-4.6); Lymphocytes % 2.6 %; Mean Corpuscular HGB Conc 34.1 g/dL (31.6-35.5); Mean Corpuscular Hemoglobin 34.1 pg (28.0-33.3); Mean Corpuscular Volume 99.7 fL (83.0-100.0); Mean Platelet Volume 10.6 fL (9.4-12.4); Monocytes # 1.3 K/mcL (0.0-1.3); Monocytes % 5.2 %; Neutrophils # 21.6 K/mcL (1.6-8.9); Platelet Count 179 K/mcL (140-400); Red Cell Distribution Width 12.5 % (11.5-14.5); Segmented Neutrophils % 87.5 %
[2019-01-29 06:57] LABS: Basophils # 0.1 K/mcL (0.0-0.2); Hemoglobin 12.6 g/dL (12.9-16.9)
[2019-01-29 07:12] LABS: BUN/Creatinine Ratio 15 (6-26); Blood Urea Nitrogen 11 mg/dL (6-20); Calcium 8.5 mg/dL (8.6-10.3); Carbon Dioxide 22 mEq/L (23-29); Chloride 106 mEq/L (98-107); Glucose 104 mg/dL (70-105); Osmolality,Calculated 278 (280-300); Sodium 134 mEq/L (136-145); eGFR For Non-African Americans > 60 (> 60)
[2019-01-29 07:18] LABS: Platelet Estimate Normal (Normal)
[2019-01-29] MEDS ORDERED: Piperacillin/Tazobactam 3.375 GM in 0.9 % Sodium Chloride Mini Bag 100 ML IVPB SCH (08:00)
--- NOTE | 2019-01-29 08:19 | Urology Progress Note ---
Date of Encounter: 01/29/19 Time of Encounter: 07:50 - Assessment and Plan (1) Scrotal abscess Current Visit: Yes Status: Acute Assessment and plan: Patient is a 48-year-old male who presents 5 hours status post incision and drai nage of scrotal abscess. Vital signs are currently stable and afebrile. White blood cell count is markedly elevated at 24.7. Wound and blood cultures are pending. Patient is receiving IV vancomycin and Zosyn. We will continue with daily wound care and packing changes, continue IV antibiotics, and await final culture and sensitivity reports. Progress Note Narrative: POD #0. Patient seen and examined sitting upright in bed in no apparent distress. Family member at bedside. Patient is tolerating normal diet without nausea or vomiting. Patient is urinating without difficulty. Patient states pain is well-controlled, and he denies any fever or chills. Objective Initial Vital Signs Temp Pulse Resp BP Pulse Ox 99 F 119 16 120/77 100 01/28/19 20:56 01/28/19 20:56 01/28/19 20:56 01/28/19 20:56 01/28/19 20:56 - General physical appearance Present: no distress, no pain - Respiratory Present: normal expansion, normal respiratory effort - Abdomen Present: soft, non tender - Genitourinary Present: normal penis with no external lesions scrotal wound: bilateral (scrotum diffusely edematous, erythematous; abscess site with packing strip visible) - Integumentary Present: no rash, no abnormal pigmentation - Musculoskeletal Present: normal posture - Psychiatric Present: oriented to time, oriented to person, oriented to place, speech is normal, memory intact - Labs 01/29/19 05:52 01/29/19 05:52 Diabetes panel 01/28/19 01/29/19 Range/Units 22:46 05:52 Sodium 135 L 134 L (136-145) mEq/L Potassium 3.5 4.0 (3.5-5.1) mEq/L Chloride 104 106 (98-107) mEq/L Carbon Dioxide 21 L 22 L (23-29) mEq/L BUN 13 11 (6-20) mg/dL Creatinine 0.75 0.75 (0.70-1.30) mg/dL Glucose 89 104 (70-105) mg/dL Calcium 9.4 8.5 L (8.6-10.3) mg/dL Calcium panel 01/28/19 01/29/19 Range/Units 22:46 05:52 Calcium 9.4 8.5 L (8.6-10.3) mg/dL Pituitary panel 01/28/19 01/29/19 Range/Units 22:46 05:52 Sodium 135 L 134 L (136-145) mEq/L Potassium 3.5 4.0 (3.5-5.1) mEq/L Chloride 104 106 (98-107) mEq/L Carbon Dioxide 21 L 22 L (23-29) mEq/L BUN 13 11 (6-20) mg/dL Creatinine 0.75 0.75 (0.70-1.30) mg/dL Glucose 89 104 (70-105) mg/dL Calcium 9.4 8.5 L (8.6-10.3) mg/dL Adrenal panel 01/28/19 01/29/19 Range/Units 22:46 05:52 Sodium 135 L 134 L (136-145) mEq/L Potassium 3.5 4.0 (3.5-5.1) mEq/L Chloride 104 106 (98-107) mEq/L Carbon Dioxide 21 L 22 L (23-29) mEq/L BUN 13 11 (6-20) mg/dL Creatinine 0.75 0.75 (0.70-1.30) mg/dL Glucose 89 104 (70-105) mg/dL Calcium 9.4 8.5 L (8.6-10.3) mg/dL Consult Discharge Plan - Plan Referrals: Madelaine Cohen, MALINI [Primary Care Provider] -
[2019-01-29] MEDS: Piperacillin/Tazobactam 3.375 GM in 0.9 % Sodium Chloride Mini Bag 100 ML IVPB SCH ×2 (08:55→17:48)
--- NOTE | 2019-01-29 11:49 | Internal Med Progress Note ---
<Tanya Pearson - Last Filed: 01/29/19 17:32> Hospitalist Progress Note - Encounter Date of Encounter: 01/29/19 Time of Encounter: 08:30 - Subjective Interval History: Mr. Tafoya is seen at bedside this morning. He was sitting comfortably at bedside. Had just returned from surgical intervention of incision and drainage of scrotal abscess. He denied any fever, chills, nausea, emesis, shortness of breath or chest pain. - Exam Vitals: Temp Pulse Resp BP Pulse Ox 97.7 F 84 18 96/63 97 01/29/19 11:17 01/29/19 11:17 01/29/19 11:17 01/29/19 11:17 01/29/19 11:17 Exam: Gen: Vitals noted. No acute distress. Appears comfortable. Eyes: anicteric sclerae, moist conjunctivae Cardiac: RRR, no murmur, +S1/S2. No JVD noted. Pulmonary: CTA bilaterally, no wheezes, rales or rhonchi, equal chest expansion Abdomen: soft, nontender, no guarding. No masses or hepatosplenomegaly MSK: ROM intact, no joint swelling noted Extremities: no edema, nontender calf Skin: Normal temperature, turgor; no rash, ulcers or subcutaneous nodules Neuro: moves all extremities, no focal deficits. Psych: Appropriate mood and behavior. A&Ox3 - Assessment and Plan (1) Sepsis Current Visit: Yes Status: Acute Assessment and Plan: Sepsis secondary to perianal abscess. Developed fever and chills 3 days ago was started on Bactrim and Keflex by [facility] outpatient but continued to have pain and drainage from the anal verge. At presentation was noted to be febrile, tachycardic and had white blood cell count of 20.1, heart rate was 114 and temperature was 101.1 Lactic acid was within normal limits at 1.0 This morning repeat white blood cell count is 24.7. His tachycardia and fever has resolved after undergoing incision and drainage. He is comfortable in room air. -Continue IV antibiotics, Zosyn and vancomycin day 1 -Urology is consulted for further recommendations -Continue to monitor vitals -CBC in the morning (2) Abscess, perineum Current Visit: Yes Status: Acute Assessment and Plan: Mr. Tafoya presented to the ED complaining of pain around his anus in the scrotum. He reported there was a small lump around his anus on 01/25/19. The lump enlarged and progressed to involvement of his scrotum. On 01/27/19 he went to the urgent care complaining of fever and chills and was prescribed Bactrim and Keflex. His pain worsened and he started noticing drainage around the perineal region. CT of the pelvis reported soft tissue gas within the left scrotal sac extended perianal subcutaneous tissue. -Urology was consulted and he underwent incision and drainage around the left anal verge and left hemiscrotal wall. -The wounds are packed with dry sterile dressings applied. -Continue wound care per urology's recommendation -Continue vancomycin and Zosyn, ay 1 -Blood cultures pending -Wound cultures pending -Continue pain management -We will continue to trend CBC, CBC in the morning (3) Tobacco abuse Current Visit: Yes Status: Acute Assessment and Plan: Smokes 1 pack per day. Nicotine patch ordered. (4) GERD (gastroesophageal reflux disease) Current Visit: Yes Status: Chronic Assessment and Plan: At home he reports he tolerates Tums and would like to continue Tums as needed. Tums when necessary ordered. DVT Prophylaxis: EPCD due to risk of bleeding status post incision and drainage - Time Spent with Patient Total time spent is greater than 50% in coordination of care (as documented) at patient's floor/unit and/or counseling patient: Internal Medicine: Result - Labs CBC & Chem 7: 01/29/19 05:52 01/29/19 05:52 Labs: Short CBC 01/28/19 01/29/19 Range/Units 22:46 05:52 WBC 20.1 H 24.7 H (4.3-11.1) K/mcL Hgb 14.4 12.6 L D (12.9-16.9) g/dL Hct 42.9 36.9 L (37.5-50.1) % Plt Count 196 179 (140-400) K/mcL Neutrophils # 18.0 H 21.6 H (1.6-8.9) K/mcL BMP 01/28/19 01/29/19 22:46 05:52 Sodium 135 L 134 L Potassium 3.5 4.0 Chloride 104 106 Carbon Dioxide 21 L 22 L BUN 13 11 Creatinine 0.75 0.75 Glucose 89 104 Calcium 9.4 8.5 L Urine 01/28/19 Range/Units 21:02 Urine Color Yellow (Yellow) Urine Clarity Clear (Clear) Urine pH 7.0 (5.0-8.0) pH Units Ur Specific Wayne 1.021 (1.010-1.025) Urine Protein Negative (Neg-Trace) mg/dL Urine Glucose (UA) Normal (Normal) mg/dL - Impressions Impressions Scrotum Ultrasound 01/28/19 22:15 IMPRESSION: 1. Scrotal cellulitis with no evidence for abscess formation. 2. Normal flow in both testicles. 3. Left-sided epididymitis. D/ / Manav Levin MD / Manav Levin MD Interpreting Provider: Manav Levin MD Abdomen/Pelvis CT 01/29/19 00:01 IMPRESSION: Edema throughout the subcutaneous tissues the scrotum with associated increased vascularity. There is also soft tissue gas within the lower left scrotal sac extending superiorly into the left perineal subcutaneous tissues compatible with Parag gangrene. Findings were discussed with Dr. Abdulkadir Bridges at 12:45 am on 01/29/2019. D/ / Shannan Modi Cha, MD / Shannan Modi Cha, MD Interpreting Provider: Shannan Modi Cha, MD Consult Discharge Plan - Plan Referrals: Madelaine Cohen CNP [Primary Care Provider] - <Nilson Lucero - Last Filed: 01/29/19 18:45> Hospitalist Progress Note - Encounter Date of Encounter: 01/29/19 - Exam Vitals: Temp Pulse Resp BP Pulse Ox 98.1 F 89 18 100/63 99 01/29/19 14:13 01/29/19 14:13 01/29/19 14:13 01/29/19 14:13 01/29/19 14:13 - Assessment and Plan (1) Abscess, perineum Current Visit: Yes Status: Acute (2) Sepsis Current Visit: Yes Status: Acute (3) Tobacco abuse Current Visit: Yes Status: Acute (4) GERD (gastroesophageal reflux disease) Current Visit: Yes Status: Chronic - Time Spent with Patient Total time spent is greater than 50% in coordination of care (as documented) at patient's floor/unit and/or counseling patient: Internal Medicine: Result - Labs CBC & Chem 7: 01/29/19 05:52 01/29/19 05:52 Labs: Short CBC 01/28/19 01/29/19 Range/Units 22:46 05:52 WBC 20.1 H 24.7 H (4.3-11.1) K/mcL Hgb 14.4 12.6 L D (12.9-16.9) g/dL Hct 42.9 36.9 L (37.5-50.1) % Plt Count 196 179 (140-400) K/mcL Neutrophils # 18.0 H 21.6 H (1.6-8.9) K/mcL BMP 01/28/19 01/29/19 22:46 05:52 Sodium 135 L 134 L Potassium 3.5 4.0 Chloride 104 106 Carbon Dioxide 21 L 22 L BUN 13 11 Creatinine 0.75 0.75 Glucose 89 104 Calcium 9.4 8.5 L Urine 01/28/19 Range/Units 21:02 Urine Color Yellow (Yellow) Urine Clarity Clear (Clear) Urine pH 7.0 (5.0-8.0) pH Units Ur Specific Wayne 1.021 (1.010-1.025) Urine Protein Negative (Neg-Trace) mg/dL Urine Glucose (UA) Normal (Normal) mg/dL - Impressions Impressions Scrotum Ultrasound 01/28/19 22:15 IMPRESSION: 1. Scrotal cellulitis with no evidence for abscess formation. 2. Normal flow in both testicles. 3. Left-sided epididymitis. D/ / Manav Levin MD / Manav Levin MD Interpreting Provider: Manav Levin MD Abdomen/Pelvis CT 01/29/19 00:01 IMPRESSION: Edema throughout the subcutaneous tissues the scrotum with associated increased vascularity. There is also soft tissue gas within the lower left scrotal sac extending superiorly into the left perineal subcutaneous tissues compatible with Parag gangrene. Findings were discussed with Dr. Abdulkadir Bridges at 12:45 am on 01/29/2019. D/ / Shannan Modi Cha, MD / Shannan Modi Cha, MD Interpreting Provider: Shannan Modi Cha, MD - Attending Attestation I examined this patient and my medical decision-making was reviewed with the Resident Physician. I agree with the documented findings, disposition and treatment plan as described except to the extent set forth below. <Tanya Pearson - Last Filed: 01/29/19 17:32> (1) Sepsis Qualifiers: Sepsis type: sepsis due to unspecified organism Qualified Code(s): A41.9 - Sepsis, unspecified organism (4) GERD (gastroesophageal reflux disease) Qualifiers: Esophagitis presence: esophagitis presence not specified Qualified Code(s): K21.9 - Gastro-esophageal reflux disease without esophagitis <Nilson Lucero - Last Filed: 01/29/19 18:45> (2) Sepsis Qualifiers: Sepsis type: sepsis due to unspecified organism Qualified Code(s): A41.9 - Sepsis, unspecified organism (4) GERD (gastroesophageal reflux disease) Qualifiers: Esophagitis presence: esophagitis presence not specified Qualified Code(s): K21.9 - Gastro-esophageal reflux disease without esophagitis
[2019-01-29] MEDS: Nicotine 21 MG PATCH.TD24 TD SCH (15:48)
[2019-01-30] MEDS: 0.9 % Sodium Chloride 1,000 ML IVC SCH ×4 (00:07→21:08)
[2019-01-30] MEDS: Piperacillin/Tazobactam 3.375 GM in 0.9 % Sodium Chloride Mini Bag 100 ML IVPB SCH ×4 (00:09→23:52)
[2019-01-30] MEDS: *HR* OxyCODONE/APAP 5/325 TABLET PO PRN ×2 (03:55→23:52)
[2019-01-30 05:36] LABS: Basophils % 0.1 %; Eosinophils % 0.1 %; Hematocrit 36.2 % (37.5-50.1); Hemoglobin 12.1 g/dL (12.9-16.9); Immature Granulocytes % 1.8 % (0-4); Lymphocytes # 1.8 K/mcL (0.6-4.6); Lymphocytes % 7.3 %; Mean Corpuscular HGB Conc 33.4 g/dL (31.6-35.5); Mean Corpuscular Hemoglobin 33.9 pg (28.0-33.3); Mean Corpuscular Volume 101.4 fL (83.0-100.0); Mean Platelet Volume 10.6 fL (9.4-12.4); Monocytes # 1.4 K/mcL (0.0-1.3); Monocytes % 5.8 %; Neutrophils # 20.5 K/mcL (1.6-8.9); Platelet Count 217 K/mcL (140-400); Red Blood Count 3.57 M/mcL (4.19-5.50); Red Cell Distribution Width 12.4 % (11.5-14.5); Segmented Neutrophils % 84.9 %
[2019-01-30 05:57] LABS: BUN/Creatinine Ratio 15 (6-26); Blood Urea Nitrogen 10 mg/dL (6-20); Calcium 8.8 mg/dL (8.6-10.3); Carbon Dioxide 22 mEq/L (23-29); Chloride 109 mEq/L (98-107); Glucose 132 mg/dL (70-105); Osmolality,Calculated 287 (280-300); Potassium 3.9 mEq/L (3.5-5.1); Sodium 138 mEq/L (136-145); eGFR For Non-African Americans > 60 (> 60)
[2019-01-30] MEDS: Nicotine 21 MG PATCH.TD24 TD SCH (08:55)
[2019-01-30] MEDS: OXYCODONE Oral CONC 10 MG/0.5 ML ORAL.SYG SL PRN (08:58)
--- NOTE | 2019-01-30 10:12 | Urology Progress Note ---
Date of Encounter: 01/30/19 Time of Encounter: 09:30 - Assessment and Plan (1) Scrotal abscess Current Visit: Yes Status: Acute Assessment and plan: Patient is a 48-year-old male who presents with a scrotal abscess. Both anal ve rge and left scrotal wound sites were addressed with packing removal, reinsertion, and dressing changes at the bedside. Vital signs are stable and afebrile. White blood cell count remains elevated at 24.2. Preliminary wound culture is positive for gram-positive cocci. Patient is receiving IV vancomycin and Zosyn. We will continue with daily wound care and IV antibiotics until final culture and sensitivity report is resulted. Progress Note Narrative: POD #1. Patient seen and examined sitting upright in bed in no apparent distress. Patient reports feeling much better. Patient denies any fever or chills. Patient states he is voiding well without difficulty. Objective Initial Vital Signs Temp Pulse Resp BP Pulse Ox 99 F 119 16 120/77 100 01/28/19 20:56 01/28/19 20:56 01/28/19 20:56 01/28/19 20:56 01/28/19 20:56 - General physical appearance Present: well developed, no distress, no pain - Respiratory Present: normal expansion, normal respiratory effort - Abdomen Present: soft, non tender - Genitourinary Present: normal penis with no external lesions scrotal wound: left (Scrotum diffusely erythematous and edematous but somewhat improved since yesterday; packing removed and reinserted from both wound sites) - Integumentary Present: no rash, no abnormal pigmentation - Musculoskeletal Present: normal posture - Labs 01/30/19 05:11 01/30/19 05:11 Diabetes panel 01/30/19 Range/Units 05:11 Sodium 138 (136-145) mEq/L Potassium 3.9 (3.5-5.1) mEq/L Chloride 109 H (98-107) mEq/L Carbon Dioxide 22 L (23-29) mEq/L BUN 10 (6-20) mg/dL Creatinine 0.66 L (0.70-1.30) mg/dL Glucose 132 H (70-105) mg/dL Calcium 8.8 (8.6-10.3) mg/dL Calcium panel 01/30/19 Range/Units 05:11 Calcium 8.8 (8.6-10.3) mg/dL Pituitary panel 01/30/19 Range/Units 05:11 Sodium 138 (136-145) mEq/L Potassium 3.9 (3.5-5.1) mEq/L Chloride 109 H (98-107) mEq/L Carbon Dioxide 22 L (23-29) mEq/L BUN 10 (6-20) mg/dL Creatinine 0.66 L (0.70-1.30) mg/dL Glucose 132 H (70-105) mg/dL Calcium 8.8 (8.6-10.3) mg/dL Adrenal panel 01/30/19 Range/Units 05:11 Sodium 138 (136-145) mEq/L Potassium 3.9 (3.5-5.1) mEq/L Chloride 109 H (98-107) mEq/L Carbon Dioxide 22 L (23-29) mEq/L BUN 10 (6-20) mg/dL Creatinine 0.66 L (0.70-1.30) mg/dL Glucose 132 H (70-105) mg/dL Calcium 8.8 (8.6-10.3) mg/dL Consult Discharge Plan - Plan Referrals: Madelaine Cohen, [employer] [Primary Care Provider] -
--- NOTE | 2019-01-30 12:23 | Infectious Disease Consult ---
Date of Encounter: 01/30/19 Time of Encounter: 12:23 Assessment and Plan (1) Sepsis Status: Acute Assessment and plan: The patient had three SIRS criteria. Likely secondary to perineal abscess. Improved. WBC trending down. Tachycardia resolved. Afebrile. Blood cultures drawn 01/28/19 are NGTD x 2 sets. Recommendations: Await blood cultures. Await intra-op cultures to finalize. Wound care per the Urology team. Continue Vancomycin IV. Pharmacy to dose. Goal trough ~15. Continue Zosyn 3.375 grams IV Q8H. Start Clindamycin 600mg IV Q8H. Duration of treatment depends on the clinical picture. Monitor renal function and for drug toxicity and dose-adjust antibiotics. Qualifiers: Sepsis type: sepsis due to unspecified organism Qualified Code(s): A41.9 - Sepsis, unspecified organism (2) Abscess, perineum Status: Acute Assessment and plan: Etiology: Unclear. Causative organism: Unclear. Gram stain positive for GPC, presumptively strep species per micro. Scrotal UTS showed scrotal cellulitis without abscess and left epididymitis. 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 Urology consulted. Status post I & D scrotal abscess 01/29/[address] Reid. Operative note reviewed. No evidence of gangrene noted intra-op. Intra-op cultures are pending. Currently on Vanc and Zosyn. (3) Cellulitis of perineum Status: Acute Assessment and plan: Causative organism: Unclear. Etiology unclear. Improved per patient report. Currently on Vanc and Zosyn. (4) Tobacco abuse Status: Acute Infectious Disease HPI - Data of Consult Patient: new to practice Consult date: 01/30/19 Requesting Physician: Renan Cabello MD Primary Care Provider: Madelaine Cohen - Consult Narrative Reason for consult: Perineal abscess History of present illness: Mr. Tafoya is a 48 year old male CC: Renan Cabello MD Past Med Surg Social Fam HX - Past Medical History Attestation: Yes The following information was validated with the patient. Source: patient, old records reviewed, nursing notes reviewed Medical history: no medical history, non-contributory Psychiatric history: no psych history - Past Surgical History Surgical History: other Additional surgical history: lt knee scope - Social History Smoking Status: Current every day smoker Packs per day: 1 Smokeless Tobacco Status: No Alcohol use: occasionally Drug use: none Occupational status: employed Current living situation: Home - Independent Activity Level: Independent ambulation Recent Out of Country Travel Within the Last 8 Weeks: No Exposure or Possible Exposure to Illness During Travel: No - Family History Brother Hx Family Genitourinary Disorders: Yes (Kidney stones) Infectious Disease-CN:Meds Amoxicillin/Clavulanate [Augmentin] 875 mg PO BIDWM 14 Days #28 tablet 02/01/19 [Rx] RX: Acetaminophen [Tylenol] 650 mg PO Q6HR PRN tablet 02/01/19 [Rx] RX: OxyCODONE/APAP 5/325 [Percocet 5/325 MG] 1 each PO Q4HR PRN 2 Days #7 tablet 02/01/19 [Rx] Allergy/AdvReac Type Severity Reaction Status Date / Time No Known Allergies Allergy Verified 01/28/19 20:56 All systems: reviewed and no additional remarkable complaints except as stated Exam - Constitutional Vitals: Temp Pulse Resp BP Pulse Ox 97.7 F 83 18 100/65 97 01/30/19 07:44 01/30/19 07:44 01/30/19 07:44 01/30/19 07:44 01/30/19 07:44 General appearance: average body habitus, cooperative, no acute distress - Head Head exam: Present: atraumatic, normal inspection, normocephalic - Eye Eye exam: Present: EOMI, normal appearance, PERRL Pupils: Present: normal accommodation - ENT ENT exam: Present: mucous membranes moist - Neck Neck exam: Present: normal inspection - Respiratory Respiratory exam: Present: CTAB. Absent: rales, respiratory distress, rhonchi, wheezes - Cardiovascular Cardiovascular exam: Present: RRR, +S1, +S2 - GI/Abdominal GI/Abdominal exam: Present: normal bowel sounds, soft. Absent: distended, tenderness - Rectal Rectal exam: Present: tenderness (Perineal) Additional comments: Erythema noted to the perineum. Tenderness noted with palpation. Surgical site noted with packing in place. Small amount of serous drainage noted on the dressing. - Extremities Exam Extremities exam: Present: normal inspection. Absent: joint swelling, pedal edema, tenderness - Neurological Exam Neurological exam: Present: alert, oriented X3, no focal deficits - Psychiatric Psychiatric exam: Present: normal affect, normal mood - Skin Skin exam: Present: dry, intact, normal color, warm Infectious Disease CN: Results - Labs CBC & Chem 7: 02/01/19 04:05 02/01/19 04:05 Cultures: Cultures 01/29/19 03:25 Wound Culture - Preliminary Scrotum Gram Positive Cocci 01/29/19 03:26 Wound Culture - Preliminary Scrotum Gram Positive Cocci 01/29/19 03:26 Anaerobic Culture - Preliminary Scrotum Culture is incubating. 01/29/19 03:25 Anaerobic Culture - Preliminary Scrotum Culture is incubating. 01/28/19 22:46 Blood Culture - Preliminary Peripheral Venipuncture Culture is incubating and being continuously monitored for growth. Final report to follow. 01/28/19 22:49 Blood Culture - Preliminary Peripheral Venipuncture Culture is incubating and being continuously monitored for growth. Final report to follow. Serology: Serology 01/30/19 01/30/19 01/29/19 Range/Units 05:11 05:11 05:52 WBC 24.2 H (4.3-11.1) K/mcL RBC 3.57 L (4.19-5.50) M/mcL Hgb 12.1 L (12.9-16.9) g/dL Hct 36.2 L (37.5-50.1) % MCV 101.4 H (83.0-100.0) fL MCH 33.9 H (28.0-33.3) pg MCHC 33.4 (31.6-35.5) g/dL RDW 12.4 (11.5-14.5) % Plt Count 217 (140-400) K/mcL MPV 10.6 (9.4-12.4) fL Immature Gran % 1.8 (0-4) % Seg Neutrophils % 84.9 % Lymphocytes % 7.3 % Monocytes % 5.8 % Eosinophils % 0.1 % Basophils % 0.1 % Neutrophils # 20.5 H (1.6-8.9) K/mcL Lymphocytes # 1.8 (0.6-4.6) K/mcL Monocytes # 1.4 H (0.0-1.3) K/mcL Eosinophils # 0.0 (0.0-0.6) K/mcL Basophils # 0.0 (0.0-0.2) K/mcL Platelet Estimate (Normal) Sodium 138 134 L (136-145) mEq/L Potassium 3.9 4.0 (3.5-5.1) mEq/L Chloride 109 H 106 (98-107) mEq/L Carbon Dioxide 22 L 22 L (23-29) mEq/L BUN 10 11 (6-20) mg/dL Creatinine 0.66 L 0.75 (0.70-1.30) mg/dL Est GFR ( Amer) > 60 > 60 (> 60) Est GFR (Non-Af Amer) > 60 > 60 (> 60) BUN/Creatinine Ratio 15 15 (6-26) Glucose 132 H 104 (70-105) mg/dL Calculated Osmolality 287 278 L (280-300) Lactic Acid (0.5-2.2) mmol/L Calcium 8.8 8.5 L (8.6-10.3) mg/dL Urine Color (Yellow) Urine Clarity (Clear) Urine pH (5.0-8.0) pH Units Ur Specific [place] (1.010-1.025) Urine Protein (Neg-Trace) mg/dL Urine Glucose (UA) (Normal) mg/dL Urine Ketones (Negative) mg/dL Urine Blood (Negative) Urine Nitrite (Negative) Urine Bilirubin (Negative) Urine Urobilinogen (Normal) mg/dL Ur Leukocyte Esterase (Negative) Ur Culture Indicated? (NO) 01/29/19 01/28/19 01/28/19 Range/Units 05:52 22:46 22:46 WBC 24.7 H (4.3-11.1) K/mcL RBC 3.70 L (4.19-5.50) M/mcL Hgb 12.6 L D (12.9-16.9) g/dL Hct 36.9 L (37.5-50.1) % MCV 99.7 (83.0-100.0) fL MCH 34.1 H (28.0-33.3) pg MCHC 34.1 (31.6-35.5) g/dL RDW 12.5 (11.5-14.5) % Plt Count 179 (140-400) K/mcL MPV 10.6 (9.4-12.4) fL Immature Gran % 4.5 H (0-4) % Seg Neutrophils % 87.5 % Lymphocytes % 2.6 % Monocytes % 5.2 % Eosinophils % 0.0 % Basophils % 0.2 % Neutrophils # 21.6 H (1.6-8.9) K/mcL Lymphocytes # 0.6 (0.6-4.6) K/mcL Monocytes # 1.3 (0.0-1.3) K/mcL Eosinophils # 0.0 (0.0-0.6) K/mcL Basophils # 0.1 (0.0-0.2) K/mcL Platelet Estimate Normal (Normal) Sodium 135 L (136-145) mEq/L Potassium 3.5 (3.5-5.1) mEq/L Chloride 104 (98-107) mEq/L Carbon Dioxide 21 L (23-29) mEq/L BUN 13 (6-20) mg/dL Creatinine 0.75 (0.70-1.30) mg/dL Est GFR ( Amer) > 60 (> 60) Est GFR (Non-Af Amer) > 60 (> 60) BUN/Creatinine Ratio 17 (6-26) Glucose 89 (70-105) mg/dL Calculated Osmolality 280 (280-300) Lactic Acid 1.0 (0.5-2.2) mmol/L Calcium 9.4 (8.6-10.3) mg/dL Urine Color (Yellow) Urine Clarity (Clear) Urine pH (5.0-8.0) pH Units Ur Specific [place] (1.010-1.025) Urine Protein (Neg-Trace) mg/dL Urine Glucose (UA) (Normal) mg/dL Urine Ketones (Negative) mg/dL Urine Blood (Negative) Urine Nitrite (Negative) Urine Bilirubin (Negative) Urine Urobilinogen (Normal) mg/dL Ur Leukocyte Esterase (Negative) Ur Culture Indicated? (NO) 01/28/19 01/28/19 Range/Units 22:46 21:02 WBC 20.1 H (4.3-11.1) K/mcL RBC 4.25 (4.19-5.50) M/mcL Hgb 14.4 (12.9-16.9) g/dL Hct 42.9 (37.5-50.1) % MCV 100.9 H (83.0-100.0) fL MCH 33.9 H (28.0-33.3) pg MCHC 33.6 (31.6-35.5) g/dL RDW 12.3 (11.5-14.5) % Plt Count 196 (140-400) K/mcL MPV 10.2 (9.4-12.4) fL Immature Gran % 0.7 (0-4) % Seg Neutrophils % 89.6 % Lymphocytes % 5.1 % Monocytes % 4.2 % Eosinophils % 0.2 % Basophils % 0.2 % Neutrophils # 18.0 H (1.6-8.9) K/mcL Lymphocytes # 1.0 (0.6-4.6) K/mcL Monocytes # 0.8 (0.0-1.3) K/mcL Eosinophils # 0.0 (0.0-0.6) K/mcL Basophils # 0.0 (0.0-0.2) K/mcL Platelet Estimate (Normal) Sodium (136-145) mEq/L Potassium (3.5-5.1) mEq/L Chloride (98-107) mEq/L Carbon Dioxide (23-29) mEq/L BUN (6-20) mg/dL Creatinine (0.70-1.30) mg/dL Est GFR ( Amer) (> 60) Est GFR (Non-Af Amer) (> 60) BUN/Creatinine Ratio (6-26) Glucose (70-105) mg/dL Calculated Osmolality (280-300) Lactic Acid (0.5-2.2) mmol/L Calcium (8.6-10.3) mg/dL Urine Color Yellow (Yellow) Urine Clarity Clear (Clear) Urine pH 7.0 (5.0-8.0) pH Units Ur Specific [place] 1.021 (1.010-1.025) Urine Protein Negative (Neg-Trace) mg/dL Urine Glucose (UA) Normal (Normal) mg/dL Urine Ketones Negative (Negative) mg/dL Urine Blood Negative (Negative) Urine Nitrite Negative (Negative) Urine Bilirubin Negative (Negative) Urine Urobilinogen Normal (Normal) mg/dL Ur Leukocyte Esterase Negative (Negative) Ur Culture Indicated? NO (NO) Consult Discharge Plan - Plan Instructions: Acute Wound Care (DC), Abscess (GEN), Rectal Fistulotomy (DC) Referrals: Madelaine Cohen CNP [Primary Care Provider] - 02/07/19 9:00 am (Follow up as scheduled. ) Prescriptions: RX: OxyCODONE/APAP 5/325 [Percocet 5/325 MG] 1 each PO Q4HR PRN 2 Days #7 tablet PRN Reason: Moderate Pain Amoxicillin/Clavulanate [Augmentin] 875 mg PO BIDWM 14 Days #28 tablet - Attending Attestation I have personally performed a face to face evaluation on this patient. I have reviewed and agree with the care plan. History and Exam by me shows: This is an addendum to report dictated by Rachael aHmm CNP. Please refer to Rachael's note for full detail. Patient is a 48-year-old gentleman who is otherwise healthy came in with what appears to be a necrotizing fasciitis of perineal area. CT revealed gas in the tissue. Patient was taken by urology for I&D. Intra-Op cultures obtained. Patient was started on broad-spectrum antibiotics. Assessment and plan: 1.Sepsis 2.Abscess, perineum 3.Cellulitis of the bacteremia 4.Tobacco abuse Recommendations Continue Vancomycin IV. Pharmacy to dose. Goal trough ~15. Continue Zosyn 3.375 grams IV Q8H. Start Clindamycin 600mg IV Q8H. Duration of treatment depends on clinical picture and what the cultures reveal. We will tailor antibiotics accordingly based on the culture results.
[2019-01-30] MEDS: Clindamycin 600 MG/50 ML 600 MG/50 ML IV.SOLN IVPB SCH ×2 (15:10→23:52)
--- NOTE | 2019-01-30 17:11 | Internal Med Progress Note ---
<Yoly Kennedy - Last Filed: 01/30/19 17:12> Hospitalist Progress Note - Encounter Date of Encounter: 01/30/19 - Exam Vitals: Temp Pulse Resp BP Pulse Ox 97.8 F 82 18 106/67 97 01/30/19 15:22 01/30/19 15:22 01/30/19 15:22 01/30/19 15:22 01/30/19 15:22 - Assessment and Plan (1) Abscess, perineum Current Visit: Yes Status: Acute (2) Sepsis Current Visit: Yes Status: Acute (3) Tobacco abuse Current Visit: Yes Status: Acute (4) GERD (gastroesophageal reflux disease) Current Visit: Yes Status: Chronic - Time Spent with Patient Total time spent is greater than 50% in coordination of care (as documented) at patient's floor/unit and/or counseling patient: Internal Medicine: Result - Labs CBC & Chem 7: 01/30/19 05:11 01/30/19 05:11 Labs: Short CBC 01/30/19 Range/Units 05:11 WBC 24.2 H (4.3-11.1) K/mcL Hgb 12.1 L (12.9-16.9) g/dL Hct 36.2 L (37.5-50.1) % Plt Count 217 (140-400) K/mcL Neutrophils # 20.5 H (1.6-8.9) K/mcL BMP 01/30/19 05:11 Sodium 138 Potassium 3.9 Chloride 109 H Carbon Dioxide 22 L BUN 10 Creatinine 0.66 L Glucose 132 H Calcium 8.8 Consult Discharge Plan - Plan Referrals: Madelaine Cohen, [employer] [Primary Care Provider] - - Attending Attestation I examined this patient and my medical decision-making was reviewed with the Resident Physician. I agree with the documented findings, disposition and treatment plan as described except to the extent set forth below. <Tanya Pearson - Last Filed: 01/30/19 17:23> Hospitalist Progress Note - Encounter Date of Encounter: 01/30/19 Time of Encounter: 08:15 - Subjective Interval History: Mr. Tafoya was seen at bedside this morning. He was resting comfortably and denied any complaints this morning. He reported the pain in his scrotum and perianal region has improved. He had a bowel movement this morning without any difficulty. He denied fever, chills, nauea, emesis, shortness of breath or chest pain. - Exam Vitals: Temp Pulse Resp BP Pulse Ox 97.8 F 82 18 106/67 97 01/30/19 15:22 01/30/19 15:22 01/30/19 15:22 01/30/19 15:22 01/30/19 15:22 Exam: Gen: Vitals noted. No acute distress. Appears comfortable. Eyes: anicteric sclerae, moist conjunctivae Cardiac: RRR, no murmur, +S1/S2. No JVD noted. Pulmonary: CTA bilaterally, no wheezes, rales or rhonchi, equal chest expansion Abdomen: soft, nontender, no guarding. MSK: ROM intact, no joint swelling noted Extremities: no edema, nontender calf Skin: Normal temperature, turgor; no rash, ulcers or subcutaneous nodules Neuro: moves all extremities, no focal deficits. Psych: Appropriate mood and behavior. A&Ox3 - Assessment and Plan (1) Sepsis Current Visit: Yes Status: Resolved Assessment and Plan: Sepsis secondary to perianal abscess. Developed fever and chills 4 days ago was started on Bactrim and Keflex by [facility] outpatient but continued to have pain and drainage from the anal verge. At presentation was noted to be febrile, tachycardic and had white blood cell count of 20.1, heart rate was 114 and temperature was 101.1 This morning his WBC is 24.2, yesterday highest was 24.7 Lactic acid was within normal limits at 1.0 His tachycardia and fever has resolved after undergoing incision and drainage. He is comfortable and reports the pain in his perianal region as well as scrotum is improved after surgical intervention. -Continue IV antibiotics, Zosyn and vancomycin day 2 -Infectious disease consulted for antibiotic management -Urology is consulted for further recommendations -Continue to monitor vitals -CBC in the morning (2) Abscess, perineum Current Visit: Yes Status: Acute Assessment and Plan: Mr. Tafoya presented to the ED complaining of pain around his anus in the scrotum. He reported there was a small lump around his anus on 01/25/19. The lump enlarged and progressed to involvement of his scrotum. On 01/27/19 he went to the urgent care complaining of fever and chills and was prescribed Bactrim and Keflex. His pain worsened and he started noticing drainage around the perineal region. CT of the pelvis reported soft tissue gas within the left scrotal sac extended perianal subcutaneous tissue. -Urology was consulted and he underwent incision and drainage on 01/29/19 around the left anal verge and left hemiscrotal wall -The wounds are packed with dry sterile dressings applied. -Continue wound care per urology's recommendation -Continue vancomycin and Zosyn, day 2 -Clindamycin day 1 recommended by ID due to gas finding at the location of the abscess -Infectious disease consulted for antibiotic duration and recommendation -Blood cultures pending -Wound cultures pending -Continue pain management -We will continue to trend CBC, CBC in the morning (3) Cellulitis of perineum Current Visit: Yes Status: Acute Assessment and Plan: Unknown etiology. Developed 5 days ago and progressed to developing an abscess. Same plan as above. Continue antibiotic regimen and continue to monitor vitals, symptoms and WBC trend. (4) Tobacco abuse Current Visit: Yes Status: Acute Assessment and Plan: Smokes 1 pack per day. Nicotine patch ordered. (5) GERD (gastroesophageal reflux disease) Current Visit: Yes Status: Chronic Assessment and Plan: At home he reports he tolerates Tums and would like to continue Tums as needed. Tums when necessary ordered. DVT Prophylaxis: EPCD due to risk of bleeding status post incision and drainage - Time Spent with Patient Total time spent is greater than 50% in coordination of care (as documented) at patient's floor/unit and/or counseling patient: Internal Medicine: Result - Labs CBC & Chem 7: 01/30/19 05:11 01/30/19 05:11 Labs: Short CBC 01/30/19 Range/Units 05:11 WBC 24.2 H (4.3-11.1) K/mcL Hgb 12.1 L (12.9-16.9) g/dL Hct 36.2 L (37.5-50.1) % Plt Count 217 (140-400) K/mcL Neutrophils # 20.5 H (1.6-8.9) K/mcL BMP 01/30/19 05:11 Sodium 138 Potassium 3.9 Chloride 109 H Carbon Dioxide 22 L BUN 10 Creatinine 0.66 L Glucose 132 H Calcium 8.8 <Yoly Kennedy - Last Filed: 01/30/19 17:12> (2) Sepsis Qualifiers: Sepsis type: sepsis due to unspecified organism Qualified Code(s): A41.9 - Sepsis, unspecified organism (4) GERD (gastroesophageal reflux disease) Qualifiers: Esophagitis presence: esophagitis presence not specified Qualified Code(s): K21.9 - Gastro-esophageal reflux disease without esophagitis <Tanya Pearson - Last Filed: 01/30/19 17:23> (1) Sepsis Qualifiers: Sepsis type: sepsis due to unspecified organism Qualified Code(s): A41.9 - Sepsis, unspecified organism (5) GERD (gastroesophageal reflux disease) Qualifiers: Esophagitis presence: esophagitis presence not specified Qualified Code(s): K21.9 - Gastro-esophageal reflux disease without esophagitis
[2019-01-30] MEDS ORDERED: 0.9 % Sodium Chloride 250 ML ONE (21:02)
[2019-01-31 06:34] LABS: Basophils # 0.1 K/mcL (0.0-0.2); Basophils % 0.5 %; Eosinophils # 0.2 K/mcL (0.0-0.6); Hematocrit 36.6 % (37.5-50.1); Immature Granulocytes % 0.7 % (0-4); Lymphocytes # 2.8 K/mcL (0.6-4.6); Lymphocytes % 18.9 %; Mean Corpuscular HGB Conc 32.8 g/dL (31.6-35.5); Mean Corpuscular Hemoglobin 33.4 pg (28.0-33.3); Mean Corpuscular Volume 101.9 fL (83.0-100.0); Mean Platelet Volume 10.9 fL (9.4-12.4); Monocytes # 0.9 K/mcL (0.0-1.3); Monocytes % 6.3 %; Neutrophils # 10.7 K/mcL (1.6-8.9); Platelet Count 241 K/mcL (140-400); Red Blood Count 3.59 M/mcL (4.19-5.50); Red Cell Distribution Width 12.7 % (11.5-14.5); Segmented Neutrophils % 72.6 %
[2019-01-31] MEDS: 0.9 % Sodium Chloride 1,000 ML IVC SCH (06:36)
[2019-01-31 06:52] LABS: BUN/Creatinine Ratio 16 (6-26); Blood Urea Nitrogen 10 mg/dL (6-20); Calcium 8.7 mg/dL (8.6-10.3); Carbon Dioxide 20 mEq/L (23-29); Chloride 109 mEq/L (98-107); Glucose 84 mg/dL (70-105); Osmolality,Calculated 284 (280-300); Potassium 3.7 mEq/L (3.5-5.1); Sodium 138 mEq/L (136-145); eGFR For Non-African Americans > 60 (> 60)
[2019-01-31] MEDS: Nicotine 21 MG PATCH.TD24 TD SCH (08:02)
[2019-01-31] MEDS: Clindamycin 600 MG/50 ML 600 MG/50 ML IV.SOLN IVPB SCH (08:02)
[2019-01-31] MEDS: Piperacillin/Tazobactam 3.375 GM in 0.9 % Sodium Chloride Mini Bag 100 ML IVPB SCH (08:03)
[2019-01-31] MEDS: OXYCODONE Oral CONC 10 MG/0.5 ML ORAL.SYG SL PRN (08:13)
--- NOTE | 2019-01-31 09:00 | Urology Progress Note ---
Date of Encounter: 01/31/19 Time of Encounter: 08:30 - Assessment and Plan (1) Scrotal abscess Current Visit: Yes Status: Acute Assessment and plan: Patient is a 38-year-old male who presents 2 days status post scrotal abscess. Vital signs are currently stable and afebrile. White blood cell count is improved to 14.7. Wound culture is resulted and positive for pansensitive streptococcus anginosus. Discussed the need for daily packing changes at home. Patient states his daughter is a nurse and would be willing to perform this. I also discussed the possibility of arranging home health care with the primary team. Patient is eligible for discharge from a urology standpoint. Urology recommendations 10-14 days of outpatient oral course of susceptible antibiotic such as clindamycin. Patient may follow up with Dr. Reid within 1-2 weeks of discharge. Progress Note Subjective: no new complaints, feels better Narrative: POD#2. Patient seen and examined sitting upright in bed in no apparent distress. Patient is tolerating normal diet and voiding without difficulty. Patient denies any fever, chills, chest pain or dyspnea. Objective Initial Vital Signs Temp Pulse Resp BP Pulse Ox 99 F 119 16 120/77 100 01/28/19 20:56 01/28/19 20:56 01/28/19 20:56 01/28/19 20:56 01/28/19 20:56 - General physical appearance Present: well developed, no distress, no pain - Respiratory Present: normal expansion, normal respiratory effort - Abdomen Present: soft, non tender - Genitourinary Present: normal penis with no external lesions scrotal wound: left (wound is clean, dry with packing strip visible; anal verge wound without packing ) - Rectum Present: no bleeding - Integumentary Present: no rash, no abnormal pigmentation - Musculoskeletal Present: normal posture - Labs 01/31/19 04:45 01/31/19 04:45 Diabetes panel 01/31/19 Range/Units 04:45 Sodium 138 (136-145) mEq/L Potassium 3.7 (3.5-5.1) mEq/L Chloride 109 H (98-107) mEq/L Carbon Dioxide 20 L (23-29) mEq/L BUN 10 (6-20) mg/dL Creatinine 0.63 L (0.70-1.30) mg/dL Glucose 84 (70-105) mg/dL Calcium 8.7 (8.6-10.3) mg/dL Calcium panel 01/31/19 Range/Units 04:45 Calcium 8.7 (8.6-10.3) mg/dL Pituitary panel 01/31/19 Range/Units 04:45 Sodium 138 (136-145) mEq/L Potassium 3.7 (3.5-5.1) mEq/L Chloride 109 H (98-107) mEq/L Carbon Dioxide 20 L (23-29) mEq/L BUN 10 (6-20) mg/dL Creatinine 0.63 L (0.70-1.30) mg/dL Glucose 84 (70-105) mg/dL Calcium 8.7 (8.6-10.3) mg/dL Adrenal panel 01/31/19 Range/Units 04:45 Sodium 138 (136-145) mEq/L Potassium 3.7 (3.5-5.1) mEq/L Chloride 109 H (98-107) mEq/L Carbon Dioxide 20 L (23-29) mEq/L BUN 10 (6-20) mg/dL Creatinine 0.63 L (0.70-1.30) mg/dL Glucose 84 (70-105) mg/dL Calcium 8.7 (8.6-10.3) mg/dL Consult Discharge Plan - Plan Referrals: Madelaine Cohen, MALINI [Primary Care Provider] -
--- NOTE | 2019-01-31 14:15 | Infectious Disease Progress No ---
Date of Encounter: 01/31/19 Time of Encounter: 09:45 - Assessment and Plan (1) Sepsis Current Visit: Yes Status: Acute The patient had three SIRS criteria. Likely secondary to perineal abscess. Improved. WBC trending down. Tachycardia resolved. Afebrile. Blood cultures drawn 01/28/19 are NGTD x 2 sets. Recommendations: Await blood cultures. Wound care per the Urology team. Discontinue vancomycin, clindamycin, and Zosyn. Start Rocephin 2 g IV daily. Duration of treatment depends on the clinical picture. Likely transition to oral Augmentin to complete a 14 day course when ready for discharge. Monitor renal function and dose-adjust antibiotics. Qualifiers: Sepsis type: sepsis due to unspecified organism Qualified Code(s): A41.9 - Sepsis, unspecified organism (2) Abscess, perineum Current Visit: Yes Status: Acute Etiology: Unclear. Causative organism: Strep anginosus. Scrotal UTS showed scrotal cellulitis without abscess and left epididymitis. 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 Urology consulted. Status post I & D scrotal abscess 01/29/[address] Reid. Operative note reviewed. No evidence of gangrene noted intra-op. Intra-op cul tures as above. Currently on Vanc and Zosyn and clindamycin. (3) Cellulitis of perineum Current Visit: No Status: Acute Causative organism: S. anginosus. Etiology unclear. Improved. Currently on Vanc and Zosyn and clindamycin. (4) Tobacco abuse Current Visit: Yes Status: Acute - Subjective Interval history: seen and examined. No acute events noted overnight. Patient states overall he feels better today. Reports improvement in the pain and swelling to his perineal and scrotal areas. Denies fevers, chills, or rigors. Denies chest pain, shortness of breath, or cough. Denies nausea, vomiting, diarrhea, or constipation. Denies abdominal pain or urinary complaints. Denies oral thrush or any skin lesions. Infect Dis PN-Objective Data - Labs CBC & Chem 7: 02/01/19 04:05 02/01/19 04:05 Labs: Laboratory Results - last 24 hr 01/31/19 01/31/19 01/31/19 04:45 04:45 11:51 WBC 14.7 H RBC 3.59 L Hgb 12.0 L Hct 36.6 L MCV 101.9 H MCH 33.4 H MCHC 32.8 RDW 12.7 Plt Count 241 MPV 10.9 Immature Gran % 0.7 Seg Neutrophils % 72.6 Lymphocytes % 18.9 Monocytes % 6.3 Eosinophils % 1.0 Basophils % 0.5 Neutrophils # 10.7 H Lymphocytes # 2.8 Monocytes # 0.9 Eosinophils # 0.2 Basophils # 0.1 Sodium 138 Potassium 3.7 Chloride 109 H Carbon Dioxide 20 L BUN 10 Creatinine 0.63 L Est GFR ( Amer) > 60 Est GFR (Non-Af Amer) > 60 BUN/Creatinine Ratio 16 Glucose 84 Calculated Osmolality 284 Calcium 8.7 Vancomycin Trough 8 Cultures: Cultures 01/29/19 03:26 Anaerobic Culture - Preliminary Scrotum Culture is incubating. 01/29/19 03:25 Anaerobic Culture - Preliminary Scrotum Culture is incubating. 01/29/19 03:25 Wound Culture - Final Scrotum Streptococcus anginosus 01/29/19 03:26 Wound Culture - Final Scrotum Streptococcus anginosus 01/28/19 22:46 Blood Culture - Preliminary Peripheral Venipuncture Culture is incubating and being continuously monitored for growth. Final report to follow. 01/28/19 22:49 Blood Culture - Preliminary Peripheral Venipuncture Culture is incubating and being continuously monitored for growth. Final report to follow. Serology 01/28/19 Range/Units 21:02 Urine Color Yellow (Yellow) Urine Clarity Clear (Clear) Urine pH 7.0 (5.0-8.0) pH Units Ur Specific [place] 1.021 (1.010-1.025) Urine Protein Negative (Neg-Trace) mg/dL Urine Glucose (UA) Normal (Normal) mg/dL Urine Ketones Negative (Negative) mg/dL Urine Blood Negative (Negative) Urine Nitrite Negative (Negative) Urine Bilirubin Negative (Negative) Urine Urobilinogen Normal (Normal) mg/dL Ur Leukocyte Esterase Negative (Negative) Ur Culture Indicated? NO (NO) Exam - Constitutional Vitals: Temp Pulse Resp BP Pulse Ox 98.4 F 78 18 122/81 94 01/31/19 07:04 01/31/19 07:04 01/31/19 07:04 01/31/19 07:04 01/31/19 07:04 General appearance: average body habitus, cooperative, no acute distress - Head Head exam: Present: atraumatic, normal inspection, normocephalic - Eye Eye exam: Present: EOMI, normal appearance, PERRL Pupils: Present: normal accommodation - ENT ENT exam: Present: mucous membranes moist - Neck Neck exam: Present: normal inspection - Respiratory Respiratory exam: Present: CTAB. Absent: rales, respiratory distress, rhonchi, wheezes - Cardiovascular Cardiovascular exam: Present: RRR, +S1, +S2 - GI/Abdominal GI/Abdominal exam: Present: normal bowel sounds, soft. Absent: distended, tenderness - Extremities Exam Extremities exam: Present: normal inspection. Absent: joint swelling, pedal edema, tenderness - Neurological Exam Neurological exam: Present: alert, oriented X3, no focal deficits - Psychiatric Psychiatric exam: Present: normal affect, normal mood - Skin Skin exam: Present: dry, intact, normal color, warm Additional comments: Semen noted to the perineum and scrotal and pubic areas improved. Surgical site noted to the left scrotum with dressing intact. Consult Discharge Plan - Plan Instructions: Acute Wound Care (DC), Abscess (GEN), Rectal Fistulotomy (DC) Referrals: Bienvenido Reid MD [Partnered Physician] - (Web-requested, the office will call the patient to schedule a follow up appointment. ) Madelaine Cohen CNP [Primary Care Provider] - 02/07/19 9:00 am (Follow up as scheduled. ) Prescriptions: RX: OxyCODONE/APAP 5/325 [Percocet 5/325 MG] 1 each PO Q4HR PRN 2 Days #7 tablet PRN Reason: Moderate Pain Amoxicillin/Clavulanate [Augmentin] 875 mg PO BIDWM 14 Days #28 tablet - Attending Attestation I have personally performed a face to face evaluation on this patient. I have reviewed and agree with the care plan. History and Exam by me shows: Assessment and plan: 1.Sepsis 2.Abscess, perineum 3.Cellulitis of the bacteremia 4.Tobacco abuse Recommendations d/c vanc/zosyn start rocephin patient agreeable to checking HIV status d/c clinda duration of treatment 14 days
--- NOTE | 2019-01-31 14:57 | Internal Med Progress Note ---
<Tanya Pearson - Last Filed: 01/31/19 14:54> Hospitalist Progress Note - Encounter Date of Encounter: 01/31/19 Time of Encounter: 08:20 - Subjective Interval History: Mr. Tafoya seen at bedside this morning. He was resting comfortably but did complain of some burning sensation around his scrotum. He reported the pain worsens when the gauze touches that area. He denied fever, chills, nausea, emesis, breath or chest pain - Exam Vitals: Temp Pulse Resp BP Pulse Ox 98.4 F 78 18 122/81 94 01/31/19 07:04 01/31/19 07:04 01/31/19 07:04 01/31/19 07:04 01/31/19 07:04 Exam: Gen: Vitals noted. No acute distress. Appears comfortable. Eyes: anicteric sclerae, moist conjunctivae Cardiac: RRR, no murmur, +S1/S2. No JVD noted. Pulmonary: CTA bilaterally, no wheezes, rales or rhonchi, equal chest expansion Abdomen: soft, nontender, no guarding. MSK: ROM intact, no joint swelling noted : erythema and point tenderness around left scrotum area Extremities: no edema, nontender calf Skin: Normal temperature, turgor; no rash, ulcers or subcutaneous nodules Neuro: moves all extremities, no focal deficits. Psych: Appropriate mood and behavior. A&Ox3 - Assessment and Plan (1) Sepsis Current Visit: Yes Status: Resolved Assessment and Plan: Sepsis secondary to perianal abscess. Developed fever and chills 4 days prior to presentation and was started on Bactrim and Keflex by urgent care outpatient but continued to have pain and drainage from the anal verge. At presentation was noted to be febrile, tachycardic and had white blood cell count of 20.1, heart rate was 114 and temperature was 101.1 This morning his WBC improved to 14.7 and highest was 24.7 Lactic acid was within normal limits at 1.0 His tachycardia and fever has resolved after undergoing incision and drainage. He is comfortable and reports the pain in his perianal region as well as scrotum is improved after surgical intervention. -Continue IV antibiotics, Zosyn and vancomycin day 3 -Clindamycin was added by infectious disease yesterday due to gas within the soft tissue of left scrotum -Infectious disease consulted for antibiotic management -Urology is consulted for further recommendations -Continue to monitor vitals -CBC in the morning (2) Abscess, perineum Current Visit: Yes Status: Acute Assessment and Plan: Mr. Tafoya presented to the ED complaining of pain around his anus in the scrotum. He reported there was a small lump around his anus on 01/25/19. The lump enlarged and progressed to involvement of his scrotum. On 01/27/19 he went to the urgent care complaining of fever and chills and was prescribed Bactrim and Keflex. His pain worsened and he started noticing drainage around the perineal region. CT of the pelvis reported soft tissue gas within the left scrotal sac extended perianal subcutaneous tissue. -Urology was consulted and he underwent incision and drainage on 01/29/19 around the left anal verge and left hemiscrotal wall -The wounds are packed with dry sterile dressings applied. -Continue wound care per urology's recommendation -Continue vancomycin and Zosyn, day 3 -Clindamycin day 2 recommended by ID due to gas finding at the location of the abscess -Blood cultures pending -Wound culture shows Streptococcus anginosus which is pansensitive. -Infectious disease currently recommends continuing IV antibiotics 1 more day and watching WBC trend down -Continue pain management -We will continue to trend CBC, CBC in the morning (3) Cellulitis of perineum Current Visit: Yes Status: Acute Assessment and Plan: Unknown etiology. Developed 01/26/19 and progressed to developing an abscess. Same plan as above. Continue antibiotic regimen and continue to monitor vitals, symptoms and WBC trend. (4) Tobacco abuse Current Visit: Yes Status: Acute Assessment and Plan: Smokes 1 pack per day. Nicotine patch ordered. (5) GERD (gastroesophageal reflux disease) Current Visit: Yes Status: Chronic Assessment and Plan: At home he reports he tolerates Tums and would like to continue Tums as needed. Tums when necessary ordered. DVT Prophylaxis: EPCD due to risk of bleeding status post incision and drainage - Time Spent with Patient Total time spent is greater than 50% in coordination of care (as documented) at patient's floor/unit and/or counseling patient: Internal Medicine: Result - Labs CBC & Chem 7: 01/31/19 04:45 01/31/19 04:45 Labs: Short CBC 01/31/19 Range/Units 04:45 WBC 14.7 H (4.3-11.1) K/mcL Hgb 12.0 L (12.9-16.9) g/dL Hct 36.6 L (37.5-50.1) % Plt Count 241 (140-400) K/mcL Neutrophils # 10.7 H (1.6-8.9) K/mcL BMP 01/31/19 04:45 Sodium 138 Potassium 3.7 Chloride 109 H Carbon Dioxide 20 L BUN 10 Creatinine 0.63 L Glucose 84 Calcium 8.7 Consult Discharge Plan - Plan Referrals: Madelaine Cohen, [facility] [Primary Care Provider] - <Yoly Kennedy - Last Filed: 01/31/19 17:22> Hospitalist Progress Note - Encounter Date of Encounter: 01/31/19 - Exam Vitals: Temp Pulse Resp BP Pulse Ox 98.5 F 80 14 124/78 97 01/31/19 16:47 01/31/19 16:47 01/31/19 16:47 01/31/19 16:47 01/31/19 16:47 - Assessment and Plan (1) Abscess, perineum Current Visit: Yes Status: Acute (2) Cellulitis of perineum Current Visit: Yes Status: Acute (3) Sepsis Current Visit: Yes Status: Resolved (4) Tobacco abuse Current Visit: Yes Status: Acute (5) GERD (gastroesophageal reflux disease) Current Visit: Yes Status: Chronic - Time Spent with Patient Total time spent is greater than 50% in coordination of care (as documented) at patient's floor/unit and/or counseling patient: Internal Medicine: Result - Labs CBC & Chem 7: 01/31/19 04:45 01/31/19 04:45 Labs: Short CBC 01/31/19 Range/Units 04:45 WBC 14.7 H (4.3-11.1) K/mcL Hgb 12.0 L (12.9-16.9) g/dL Hct 36.6 L (37.5-50.1) % Plt Count 241 (140-400) K/mcL Neutrophils # 10.7 H (1.6-8.9) K/mcL BMP 01/31/19 04:45 Sodium 138 Potassium 3.7 Chloride 109 H Carbon Dioxide 20 L BUN 10 Creatinine 0.63 L Glucose 84 Calcium 8.7 - Attending Attestation I examined this patient and my medical decision-making was reviewed with the Resident Physician. I agree with the documented findings, disposition and treatment plan as described except to the extent set forth below. <Tanya Pearson - Last Filed: 01/31/19 14:54> (1) Sepsis Qualifiers: Sepsis type: sepsis due to unspecified organism Qualified Code(s): A41.9 - Sepsis, unspecified organism (5) GERD (gastroesophageal reflux disease) Qualifiers: Esophagitis presence: esophagitis presence not specified Qualified Code(s): K21.9 - Gastro-esophageal reflux disease without esophagitis <Yoly Kennedy - Last Filed: 01/31/19 17:22> (3) Sepsis Qualifiers: Sepsis type: sepsis due to unspecified organism Qualified Code(s): A41.9 - Sepsis, unspecified organism (5) GERD (gastroesophageal reflux disease) Qualifiers: Esophagitis presence: esophagitis presence not specified Qualified Code(s): K21.9 - Gastro-esophageal reflux disease without esophagitis
[2019-01-31] MEDS: cefTRIAXone 2,000 MG in Water for inj. (sterile) 20 ML 20 ML IVP SCH (15:39)
[2019-01-31] MEDS ORDERED: Aminoglycoside Consult 1 EACH MC ONE (15:44)
[2019-02-01 04:51] LABS: Basophils # 0.1 K/mcL (0.0-0.2); Basophils % 0.6 %; Eosinophils # 0.2 K/mcL (0.0-0.6); Eosinophils % 1.8 %; Hemoglobin 12.6 g/dL (12.9-16.9); Immature Granulocytes % 1.1 % (0-4); Lymphocytes # 2.1 K/mcL (0.6-4.6); Lymphocytes % 18.8 %; Mean Corpuscular HGB Conc 34.1 g/dL (31.6-35.5); Mean Corpuscular Hemoglobin 33.6 pg (28.0-33.3); Mean Corpuscular Volume 98.7 fL (83.0-100.0); Mean Platelet Volume 10.2 fL (9.4-12.4); Monocytes # 0.9 K/mcL (0.0-1.3); Monocytes % 8.1 %; Neutrophils # 7.8 K/mcL (1.6-8.9); Platelet Count 270 K/mcL (140-400); Red Blood Count 3.75 M/mcL (4.19-5.50); Red Cell Distribution Width 12.3 % (11.5-14.5); Segmented Neutrophils % 69.6 %
[2019-02-01 04:52] LABS: BUN/Creatinine Ratio 14 (6-26); Blood Urea Nitrogen 8 mg/dL (6-20); Calcium 8.7 mg/dL (8.6-10.3); Carbon Dioxide 23 mEq/L (23-29); Chloride 109 mEq/L (98-107); Glucose 95 mg/dL (70-105); Osmolality,Calculated 286 (280-300); Potassium 3.8 mEq/L (3.5-5.1); Sodium 139 mEq/L (136-145); eGFR For Non-African Americans > 60 (> 60)
[2019-02-01] MEDS: Nicotine 21 MG PATCH.TD24 TD SCH (07:33)
--- NOTE | 2019-02-01 08:48 | Urology Progress Note ---
Date of Encounter: 02/01/19 Time of Encounter: 08:30 - Assessment and Plan (1) Scrotal abscess Current Visit: Yes Status: Acute Assessment and plan: Patient is a 48-year-old male who presents 3 days status post incision and drain age of scrotal abscess. Vital signs are stable and afebrile. White blood cell count continues to trend down and is now 11.2. Scrotal wound packing was changed, and a new dressing was applied. Patient tolerated well. Wound culture is positive for Streptococcus anginosus. Patient has received IV clindamycin and Rocephin. Anticipate discharge today with an additional 10-14 days of oral clindamycin. Patient instructed to perform daily dressing changes and packing exchange. Patient instructed to follow-up for a wound check with Dr. Reid in 2 weeks. Progress Note Subjective: no new complaints, feels better Narrative: POD #3. Patient seen and examined sitting upright in bed eating breakfast in no apparent distress. Patient is tolerating normal diet without nausea or vomiting. Patient is voiding well without difficulty. Patient denies any fever or chills. Objective Initial Vital Signs Temp Pulse Resp BP Pulse Ox 99 F 119 16 120/77 100 01/28/19 20:56 01/28/19 20:56 01/28/19 20:56 01/28/19 20:56 01/28/19 20:56 - General physical appearance Present: well developed, no distress, no pain - Respiratory Present: normal expansion, normal respiratory effort - Abdomen Present: soft, non tender - Genitourinary Present: normal penis with no external lesions scrotal wound: left (Left scrotal wound packing strip visualized; dressing is clean and dry) - Integumentary Present: no rash, no abnormal pigmentation - Musculoskeletal Present: normal posture - Psychiatric Present: oriented to time, oriented to person, oriented to place, speech is normal, memory intact - Labs 02/01/19 04:05 02/01/19 04:05 Diabetes panel 02/01/19 Range/Units 04:05 Sodium 139 (136-145) mEq/L Potassium 3.8 (3.5-5.1) mEq/L Chloride 109 H (98-107) mEq/L Carbon Dioxide 23 (23-29) mEq/L BUN 8 (6-20) mg/dL Creatinine 0.56 L (0.70-1.30) mg/dL Glucose 95 (70-105) mg/dL Calcium 8.7 (8.6-10.3) mg/dL Calcium panel 02/01/19 Range/Units 04:05 Calcium 8.7 (8.6-10.3) mg/dL Pituitary panel 02/01/19 Range/Units 04:05 Sodium 139 (136-145) mEq/L Potassium 3.8 (3.5-5.1) mEq/L Chloride 109 H (98-107) mEq/L Carbon Dioxide 23 (23-29) mEq/L BUN 8 (6-20) mg/dL Creatinine 0.56 L (0.70-1.30) mg/dL Glucose 95 (70-105) mg/dL Calcium 8.7 (8.6-10.3) mg/dL Adrenal panel 02/01/19 Range/Units 04:05 Sodium 139 (136-145) mEq/L Potassium 3.8 (3.5-5.1) mEq/L Chloride 109 H (98-107) mEq/L Carbon Dioxide 23 (23-29) mEq/L BUN 8 (6-20) mg/dL Creatinine 0.56 L (0.70-1.30) mg/dL Glucose 95 (70-105) mg/dL Calcium 8.7 (8.6-10.3) mg/dL Consult Discharge Plan - Plan Instructions: Acute Wound Care (DC), Abscess (GEN), Rectal Fistulotomy (DC) Referrals: Madelaine Cohen, L[facility] HAND [Primary Care Provider] -
--- NOTE | 2019-02-01 11:40 | Infectious Disease Progress No ---
Date of Encounter: 02/01/19 Time of Encounter: 11:38 - Assessment and Plan (1) Sepsis Current Visit: Yes Status: Acute The patient had three SIRS criteria. Likely secondary to perineal abscess. Improved. WBC trending down. Tachycardia resolved. Afebrile. Blood cultures drawn 01/28/19 are NGTD x 2 sets. Recommendations: Await blood cultures. Wound care per the Urology team. Continue Rocephin 2 g IV daily. Duration of treatment depends on the clinical picture. Likely transition to oral Augmentin to complete a 14 day post-op course when ready for discharge. Monitor renal function and dose-adjust antibiotics. Qualifiers: Sepsis type: sepsis due to unspecified organism Qualified Code(s): A41.9 - Sepsis, unspecified organism (2) Abscess, perineum Current Visit: Yes Status: Acute Etiology: Unclear. Causative organism: Strep anginosus. Scrotal UTS showed scrotal cellulitis without abscess and left epididymitis. 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 Urology consulted. Status post I & D scrotal abscess 01/29/[address] Reid. Operative note reviewed. No evidence of gangrene noted intra-op. Intra-op cultures as above. Currently on Rocephin. (3) Cellulitis of perineum Current Visit: No Status: Acute Causative organism: S. anginosus. Etiology unclear. Improved. Currently on Rocephin. (4) Tobacco abuse Current Visit: Yes Status: Acute - Subjective Interval history: Patient seen and examined. No acute events noted overnight. Patient states overall he feels better today. Reports improvement in the pain and swelling to his perineal and scrotal areas. Denies fevers, chills, or rigors. Denies chest pain, shortness of breath, or cough. Denies nausea, vomiting, diarrhea, or constipation. Denies abdominal pain or urinary complaints. Denies oral thrush or any skin lesions. Infect Dis PN-Objective Data - Labs CBC & Chem 7: 02/01/19 04:05 02/01/19 04:05 Labs: Laboratory Results - last 24 hr 01/31/19 02/01/19 02/01/19 11:51 04:05 04:05 WBC 11.2 H RBC 3.75 L Hgb 12.6 L Hct 37.0 L MCV 98.7 MCH 33.6 H MCHC 34.1 RDW 12.3 Plt Count 270 MPV 10.2 Immature Gran % 1.1 Seg Neutrophils % 69.6 Lymphocytes % 18.8 Monocytes % 8.1 Eosinophils % 1.8 Basophils % 0.6 Neutrophils # 7.8 Lymphocytes # 2.1 Monocytes # 0.9 Eosinophils # 0.2 Basophils # 0.1 Sodium 139 Potassium 3.8 Chloride 109 H Carbon Dioxide 23 BUN 8 Creatinine 0.56 L Est GFR ( Amer) > 60 Est GFR (Non-Af Amer) > 60 BUN/Creatinine Ratio 14 Glucose 95 Calculated Osmolality 286 Calcium 8.7 Vancomycin Trough 8 Cultures: Cultures 01/29/19 03:26 Anaerobic Culture - Preliminary Scrotum Culture is incubating. 01/29/19 03:25 Anaerobic Culture - Preliminary Scrotum Culture is incubating. 01/29/19 03:25 Wound Culture - Final Scrotum Streptococcus anginosus 01/29/19 03:26 Wound Culture - Final Scrotum Streptococcus anginosus 01/28/19 22:46 Blood Culture - Preliminary Peripheral Venipuncture Culture is incubating and being continuously monitored for growth. Final report to follow. 01/28/19 22:49 Blood Culture - Preliminary Peripheral Venipuncture Culture is incubating and being continuously monitored for growth. Final report to follow. Serology 01/28/19 Range/Units 21:02 Urine Color Yellow (Yellow) Urine Clarity Clear (Clear) Urine pH 7.0 (5.0-8.0) pH Units Ur Specific [place] 1.021 (1.010-1.025) Urine Protein Negative (Neg-Trace) mg/dL Urine Glucose (UA) Normal (Normal) mg/dL Urine Ketones Negative (Negative) mg/dL Urine Blood Negative (Negative) Urine Nitrite Negative (Negative) Urine Bilirubin Negative (Negative) Urine Urobilinogen Normal (Normal) mg/dL Ur Leukocyte Esterase Negative (Negative) Ur Culture Indicated? NO (NO) Exam - Constitutional Vitals: Temp Pulse Resp BP Pulse Ox 98.2 F 80 16 135/87 96 02/01/19 08:00 02/01/19 08:00 02/01/19 08:00 02/01/19 08:00 02/01/19 08:00 General appearance: average body habitus, cooperative, no acute distress - Head Head exam: Present: atraumatic, normal inspection, normocephalic - Eye Eye exam: Present: EOMI, normal appearance, PERRL Pupils: Present: normal accommodation - ENT ENT exam: Present: mucous membranes moist - Neck Neck exam: Present: normal inspection - Respiratory Respiratory exam: Present: CTAB. Absent: rales, respiratory distress, rhonchi, wheezes - Cardiovascular Cardiovascular exam: Present: RRR, +S1, +S2 - GI/Abdominal GI/Abdominal exam: Present: normal bowel sounds, soft. Absent: distended, tenderness Additional comments: Edema and erythema to the scrotal, perineal, and pubic areas continues to improve. Skin scaling noted to the scrotum. Surgical site with packing noted. Dressing C/D/I. - Extremities Exam Extremities exam: Present: normal inspection. Absent: joint swelling, pedal edema, tenderness - Neurological Exam Neurological exam: Present: alert, oriented X3, no focal deficits - Psychiatric Psychiatric exam: Present: normal affect, normal mood - Skin Skin exam: Present: dry, intact, normal color, warm Consult Discharge Plan - Plan Instructions: Acute Wound Care (DC), Abscess (GEN), Rectal Fistulotomy (DC) Referrals: Madelaine Cohen CNP [Primary Care Provider] - 02/07/19 9:00 am (Follow up as scheduled. )
--- NOTE | 2019-02-01 11:43 | Discharge Summary ---
<Isaac Page - Last Filed: 02/01/19 13:21> - NOTES TO OUTPATIENT PROVIDER Notes to Outpatient Provider: Presented with perianal/perineal abscess, surgical I&D by urology. IV Abx inpt. DC on augmentin per ID with wound car instructions per urology. Orders not resulted at time of discharge: Pending orders 01/28/19 22:46 Culture,Blood [BC] Stat 01/29/19 03:25 Culture,Anaerobic [RM] Routine 01/29/19 03:26 Culture,Anaerobic [RM] Routine Date of Encounter: 02/01/19 Time of Encounter: 11:38 - Discharge Diagnosis (1) Abscess, perineum Priority: Primary Status: Acute (2) Cellulitis of perineum Priority: Secondary Status: Acute (3) Sepsis Priority: Secondary Status: Resolved Qualifiers: Sepsis type: sepsis due to unspecified organism Qualified Code(s): A41.9 - Sepsis, unspecified organism Hospital course: Mr. 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 The patient was admitted for sepsis secondary to perineal abscess with involvement of scrotal sac. Although there was concern initially for a mor's gangrene, this was ruled out. A urology consult was placed, and he was taken for urgent I&D in the OR by urology. He was treated initially with vanc and zosyn until wound cultures grew Strep anginosis, at which time he was transitioned to rocephin. He will be discharged with PO augmentin per ID recommendations. He declined home health, as his sister is a nurse and is willing to provide dressing and packing changes. He will follow-up with urology. Discharge discussed with: patient, family, nurse, social work, case management, sales representative consultant - Time Spent with Patient Total time spent providing and/or coordinating discharge services: Time spent: Greater than 30 minutes - Discharge Medications Prescriptions: New OxyCODONE/APAP 5/325 [Percocet 5/325 MG] 1 each PO Q4HR PRN 2 Days #7 tablet PRN Reason: Moderate Pain Acetaminophen [Tylenol] 650 mg PO Q6HR PRN tablet PRN Reason: Mild Pain/Fever Amoxicillin/Clavulanate [Augmentin] 875 mg PO BIDWM 14 Days #28 tablet Discontinued cephALEXin [Keflex] 500 mg PO TID #21 capsule Sulfamethoxazole/Trimeth DS [Bactrim DS] 1 each PO BID #14 tablet Home Medications: Acetaminophen [Tylenol] 650 mg PO Q6HR PRN tablet 02/01/19 [Rx] Amoxicillin/Clavulanate [Augmentin] 875 mg PO BIDWM 14 Days #28 tablet 02/01/19 [Rx] OxyCODONE/APAP 5/325 [Percocet 5/325 MG] 1 each PO Q4HR PRN 2 Days #7 tablet 02/01/19 [Rx] Allergies/Adverse Reactions: Allergy/AdvReac Type Severity Reaction Status Date / Time No Known Allergies Allergy Verified 01/28/19 20:56 Date of admission: 01/29/19 02:38 Primary care physician: Madelaine Cohen Consults: 01/29/19 01:55 Consult to Urology [CONS] Stat Consulting Provider: Urology Nuris Reason for Consult: 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 Time Notified: 01:55 Call Completed: Yes 01/29/19 02:18 Consult to Hospitalist [CONS] Stat Consulting Provider: Hospitalist Lita Reason for Consult: Perineum abscess/scrotal cellulitis Call Completed: Yes 01/30/19 10:58 Consult to Infectious Diseases [CONS] Routine Consulting Provider: Infectious Disease Hershey Reason for Consult: For scrotal abscess Call Completed: No Discharging clinician: Isaac Page Anticipated date of discharge: 02/01/19 - Constitutional Vitals: Temp Pulse Resp BP Pulse Ox 98.2 F 80 16 135/87 96 02/01/19 08:00 02/01/19 08:00 02/01/19 08:00 02/01/19 08:00 02/01/19 08:00 General appearance: Present: A&O X 3, no acute distress, answers questions appropriately Exam: Gen: Vitals noted. No acute distress. Appears comfortable. Eyes: anicteric sclerae, moist conjunctivae Cardiac: RRR, no murmur, +S1/S2. No JVD noted. Pulmonary: CTA bilaterally, no wheezes, rales or rhonchi, equal chest expansion Abdomen: soft, nontender, no guarding. MSK: ROM intact, no joint swelling noted : erythema and point tenderness around left scrotum area Extremities: no edema, nontender calf Skin: Normal temperature, turgor; no rash, ulcers or subcutaneous nodules. Perineal dressing is intact. Neuro: moves all extremities, no focal deficits. Psych: Appropriate mood and behavior. A&Ox3 - Patient Status Disposition: Home, Self-Care Condition: Fair Functional capacity at discharge: independent ambulation Overall status at discharge: patient is progressing back to baseline - Discharge Instructions Instructions: Acute Wound Care (DC), Abscess (GEN), Rectal Fistulotomy (DC) Follow Up With: Bienvenido Reid MD [Partnered Physician] - 02/12/19 9:15 am (Web-requested, the office will call the patient to schedule a follow up appointment. ) Madelaine Cohen CNP [Primary Care Provider] - 02/07/19 9:00 am (Follow up as scheduled. ) Forms: Inpatient Work/School Release - Diet and Activity Activity: increase activity as tolerated, return to work once cleared by your PCP/specialist Diet: advance to your usual diet <Yoly Kennedy - Last Filed: 02/01/19 17:32> Orders not resulted at time of discharge: Pending orders 01/28/19 22:46 Culture,Blood [BC] Stat 01/29/19 03:25 Culture,Anaerobic [RM] Routine 01/29/19 03:26 Culture,Anaerobic [RM] Routine Date of Encounter: 02/01/19 - Discharge Diagnosis (1) Abscess, perineum Status: Acute (2) Cellulitis of perineum Status: Acute (3) Sepsis Status: Resolved Qualifiers: Sepsis type: sepsis due to unspecified organism Qualified Code(s): A41.9 - Sepsis, unspecified organism Hospital course: Mr. 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 Time Notified: 01:55 Call Completed: Yes 01/29/19 02:18 Consult to Hospitalist [CONS] Stat Consulting Provider: Hospitalist Lita Reason for Consult: Perineum abscess/scrotal cellulitis Call Completed: Yes 01/30/19 10:58 Consult to Infectious Diseases [CONS] Routine Consulting Provider: Infectious Disease Hershey Reason for Consult: For scrotal abscess Call Completed: No - Constitutional Vitals: Temp Pulse Resp BP Pulse Ox 98 F 71 16 118/77 97 02/01/19 11:36 02/01/19 11:36 02/01/19 11:36 02/01/19 11:36 02/01/19 11:36 - Attending Attestation I examined this patient and my medical decision-making was reviewed with the Resident Physician. I agree with the documented findings, disposition and treatment plan as described except to the extent set forth below.
[2019-02-01 11:45] VITALS: BP 118/77
[2019-02-01] MEDS: cefTRIAXone 2,000 MG in Water for inj. (sterile) 20 ML 20 ML IVP SCH (14:57)
== END 2019-02-01 15:45 | disposition home or self-care (01) | DRG 854 ==
LOC: EMEROOARM 20:53 → 3ANU 20:53 → SUATTDRO 01-29 02:38
PROVIDERS: ADMIT Family Medicine; ATTEND Student in an Organized Health Care Education/Training Program